=== PATIENT | male | born 1950 | race Caucasian/White ===

== ENCOUNTER 2018-03-27 12:06 | Inpatient (IN) | payer OTHER ==
--- NOTE | 2018-03-27 12:33 | PDOC ---
Attending Attestation - ED Attending Attestation I have performed the following: I have examined & evaluated the patient, The case was reviewed & discussed with the resident, I agree w/resident's findings & plan, Exceptions are as noted - HPI HPI: 03/27/18 14:20 The patient is a 68 year old male, with a significant past medical history of Afib (s/p defibrillator), HTN, and HLD, who presents to the emergency department with, acute onset shortness of breath and left anterior norton wound. Patient endorses worsening orthopnea, dyspnea upon exertion and subsequently has had to use 3-4 pillows. The patient also endorses a left anterior norton wound with purulent discharge with associated bilateral lower extremity swelling (took HCTZ today). He denies any recent fevers, chills, headache or dizziness. He denies any recent nausea, vomit, diarrhea or constipation. He denies any recent chest pain. He denies any recent dysuria, frequency, urgency or hematuria. Allergies: NKA Past surgical history: Cholecystectomy and defibrillator implantation. Social History: Smoker (4 per day for 20 years). Denies EtOH use and recreational drug use. 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 Pt is alert and oriented in no acute distress. Lungs have scattered wheezes at bases. Heart has regular rate and rhythm. + 2 pitting edema to knee bilaterally. + shallow ulceration to L norton without drainage or surrounding erythema. - Medical Decision Making 03/27/18 14:24 Pt presents to the ED complaining of two days of worsening SOB, RILEY and orthopnea. + signs of pulmonary edema on CXR. Differential includes CHF exacerbation, less likely ACS, PNA, unlikely PE. will check labs, EKG And CXR, consider admitting to medicine for CHF exacerbation. 03/27/18 14:25 <Laury Barahona - Last Filed: 03/27/18 14:27> Attestations - Attestations 03/27/18 14:20 Documentation prepared by Tabitha Sánchez, acting as medical assistant cardiology for Laury Barahona MD. <Tabitha Sánchez - Last Filed: 03/27/18 14:20>
--- NOTE | 2018-03-27 13:04 | PDOC ---
History of Present Illness - General Chief Complaint: Weakness Stated Complaint: INJURY, SOB Time Seen by Provider: 03/27/18 12:29 - History of Present Illness Initial Comments: 03/27/18 13:03 The patient is a 68 year old male presents with shortness of breath. Patient states he has been short of breath when laying down for the last 2-3 days, however today he felt short of breath upon exertion prompting his visit to the ED. No h/o RILEY, however patient does have a h/o orthopnea. Denies any chest pain, lightheadedness, palpitations. Patient states he follows with a plaster model and mold maker but does not have a PMD because he does not like going to see doctors. Is unable to state why he sees a plaster model and mold maker -- unsure if he has heart failure. Patient notes he took he daily HCTZ and Lasix today. Patient also c/o two anterior norton wounds which showed some purulent discharge. Patient has been treating them with an OTC antibacterial cream. Patient denies fevers/chills, nausea/vomiting, diarrhea/constipation, numbness/ tingling. 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 Cardiac scoring CT showed a mildly calcified coronary artery in 2014. Past History - Past Medical History Allergies/Adverse Reactions: Allergies Allergy/AdvReac Type Severity Reaction Status Date / Time No Known Allergies Allergy Verified 03/27/18 12:08 Home Medications: Ambulatory Orders Furosemide [Lasix -] 40 mg PO DAILY #0 tablet 02/25/12 Apixaban [Eliquis -] 5 mg PO BID 03/27/18 Diltiazem [Cardizem -] 360 mg PO DAILY 03/27/18 Lisinopril [Prinivil -] 20 mg PO DAILY 03/27/18 Metoprolol Succinate [Toprol XL -] 100 mg PO BID 03/27/18 Anemia: No Asthma: No Cancer: No Cardiac Disorders: Yes (A-fib) CVA: No COPD: No CHF: No Dementia: No Diabetes: No GI Disorders: No Disorders: No HTN: Yes Hypercholesterolemia: Yes Liver Disease: No Seizures: No Thyroid Disease: No - Surgical History Abdominal Surgery: No Appendectomy: No Cardiac Surgery: Yes (defib) Cholecystectomy: Yes Lung Surgery: No Neurologic Surgery: No Orthopedic Surgery: No - Immunization History Td Vaccination: (unknown) Immunization Up to Date: (unknown) - Suicide/Smoking/Psychosocial Hx Smoking Status: Yes Smoking History: Current every day smoker Years of Tobacco Use: 15 Number of Cigarettes Smoked Daily: 0 Cigars Per Day: 4 Information on smoking cessation initiated: Yes 'Breaking Loose' booklet given: 03/27/18 Hx Alcohol Use: No Drug/Substance Use Hx: No Substance Use Type: None Review of Systems - Review of Systems Constitutional: No: Chills, Fever HEENTM: No: Blurred Vision, Double Vision Respiratory: Yes: Shortness of Breath. No: Wheezing Cardiac (ROS): No: Chest Pain, Lightheadedness, Palpitations, Syncope ABD/GI: No: Constipated, Diarrhea, Nausea, Rectal Bleeding *Physical Exam - Vital Signs Last Vital Signs Temp Pulse Resp BP Pulse Ox 98.4 F 72 18 157/71 95 03/27/18 12:09 03/27/18 12:09 03/27/18 12:09 03/27/18 12:09 03/27/18 12:09 - Physical Exam General Appearance: Yes: Nourished, Appropriately Dressed HEENT: positive: Normal Voice, Hearing Grossly Normal Neck: positive: Trachea midline, Supple Respiratory/Chest: positive: Lungs Clear, Normal Breath Sounds Cardiovascular: positive: S1, S2, Edema (3+ B/L pitting edema) Vascular Pulses: Dorsalis-Pedis (R): 2+, Doralis-Pedis (L): 2+ Gastrointestinal/Abdominal: positive: Normal Bowel Sounds, Soft Musculoskeletal: negative: CVA Tenderness (R), CVA Tenderness (L) Extremity: positive: Normal Capillary Refill, Other (L anterior norton Stage I ulcers x2 - no erythema/purulent discharge appreciated) Integumentary: positive: Normal Color, Dry, Warm Neurologic: positive: Fully Oriented, Alert Heart Score/ECG Review - ECG Impressions Comment:: 03/27/18 20:35 Afib w/ventricular pacing; previous ECG (2011) shows AFib w/RVR ED Treatment Course - LABORATORY CBC & Chemistry Diagram: 03/27/18 14:15 03/27/18 14:15 - RADIOLOGY Radiology Studies Ordered: Category Date Time Status CXRPORT [CHEST X-RAY PORTABLE*] [RAD] Stat Radiology 03/27/18 12:56 Ordered Medical Decision Making - Medical Decision Making 03/27/18 13:04 68 year old male with shortness of breath. DDx: R/o ACS, new onset CHF, obstructive CAD, PNA, less likely PE given VS, lack of hypercoaguable meds, no recent immobilization. Will obtain CBC, CMP, ECG, CXR, Troponin. Likely admission. Reassess. ECG documented in ECG section of EMR - AFib, paced w/o RVR. 03/27/18 15:34 Troponin 0.21 (previous Troponin 0.19) BNP 11,120.8 (previous BNP 1999) Suspect elevated Troponin 2/2 to ischemic demand 2/2 to CHF exacerbation vs. obstructive CAD VS stable Will page for admission 03/27/18 15:37 Case d/w Dr. Cardona - accepts for inpatient telemetry 03/27/18 15:42 Repeat Trop @ 6 hour Patient resting comfortably VS stable *DC/Admit/Observation/Transfer Diagnosis at time of Disposition: Elevated brain natriuretic peptide (BNP) level - Discharge Dispostion Condition at time of disposition: Fair Decision to Admit order: Yes - Referrals - Patient Instructions - Post Discharge Activity
[2018-03-27 14:32] LABS: BASO % 1.5 % (0-2.0); HEMATOCRIT 47.1 % (35.4-49); HEMOGLOBIN 15.5 GM/dL (11.7-16.9); LYMPH % 19.8 % (8-40); MCH 30.6 pg (25.7-33.7); MEAN CELL VOLUME 92.9 fl (80-96); MEAN PLT VOLUME 8.6 fl (7.5-11.1); MONO % 15.6 % (3.8-10.2); NEUT % 62.1 % (42.8-82.8); PLATELET COUNT 196 K/MM3 (134-434); RBC 5.07 M/mm3 (4.00-5.60); RDW 15.2 % (11.9-15.9); WHITE BLOOD COUNT 8.7 K/mm3 (4.0-10.0)
[2018-03-27 15:09] LABS: ANISOCYTOSIS 0; MACROCYTOSIS 0; SMUDGE CELLS 3
[2018-03-27 15:10] LABS: ACANTHOCYTES 0; HELMET CELLS 0; HOWELL-JOLLY BODIES 0; OVALOCYTE 0; PLATELET ESTIMATE ADEQUATE; ROULEAU 0; SICKELED CELLS 0; TARGET CELLS 0; TEAR DROP CELLS 0; TOXIC GRANULATION 0
[2018-03-27 15:27] LABS: ALBUMIN 3.5 g/dl (3.4-5.0); ALK PHOS 103 U/L (45-117); ANION GAP 7 MMOL/L (8-16); BILIRUBIN,TOTAL 1.3 mg/dL (0.2-1); BLOOD UREA NITROGEN 21 mg/dL (7-18); CALCIUM 9.7 mg/dL (8.5-10.1); CHLORIDE 104 mmol/L (98-107); CO2 29 mmol/L (21-32); CREATININE 1.4 mg/dL (0.55-1.3); GLUCOSE,RANDOM 108 mg/dL (74-106); N-TERMINAL BNP 11120.8 pg/ml (5-125); POTASSIUM 4.6 mmol/L (3.5-5.1); SGOT/AST 19 U/L (15-37); SGPT/ALT 26 U/L (13-61); SODIUM 139 mmol/L (136-145); TOT PROT 7.8 g/dl (6.4-8.2)
[2018-03-27] MEDS ORDERED: FUROSEMIDE 40 MG/4 ML INJECTABLE VIAL IVPUSH ONE (15:33)
[2018-03-27] MEDS ORDERED: ASPIRIN 325 MG TABLET PO ONE (15:33)
[2018-03-27] MEDS ORDERED: ASPIRIN 325 MG TABLET ONE (15:37)
[2018-03-27] MEDS ORDERED: FUROSEMIDE 40 MG/4 ML INJECTABLE VIAL ONE (15:37)
--- NOTE | 2018-03-27 17:49 | HP ---
Admitting History and Physical - Primary Care Physician PCP: Alejandro Cardona - Admission History of Present Illness: 68 year old male, with a significant past medical history of Afib (s/p defibrillator), HTN, and HLD, who presents to the emergency department with, acute onset shortness of breath and left anterior norton wound. Patient endorses worsening orthopnea, dyspnea upon exertion and subsequently has had to use 3-4 pillows. The patient also endorses a left anterior norton wound with purulent discharge with associated bilateral lower extremity swelling (took HCTZ today). pt does not believe he hit his head as he fell on his legs - Past Medical History Cardiovascular: Yes: AFIB, HTN, Hyperlipdemia - Smoking History Smoking history: Current every day smoker Aproximately how many cigarettes per day: 0 - Alcohol/Substance Use Hx Alcohol Use: No Home Medications - Allergies Allergies/Adverse Reactions: Allergies Allergy/AdvReac Type Severity Reaction Status Date / Time No Known Allergies Allergy Verified 03/27/18 12:08 - Home Medications Home Medications: Ambulatory Orders Furosemide [Lasix -] 40 mg PO DAILY #0 tablet 02/25/12 Apixaban [Eliquis -] 5 mg PO BID 03/27/18 Diltiazem [Cardizem -] 360 mg PO DAILY 03/27/18 Lisinopril [Prinivil -] 20 mg PO DAILY 03/27/18 Metoprolol Succinate [Toprol XL -] 100 mg PO BID 03/27/18 Physical Examination Vital Signs: Vital Signs Temperature 98.4 F 03/27/18 12:09 Pulse Rate 67 03/27/18 16:06 Respiratory Rate 17 03/27/18 16:06 Blood Pressure 136/77 03/27/18 16:06 O2 Sat by Pulse Oximetry (%) 96 03/27/18 16:06 Constitutional: Yes: No Distress HENT: Yes: Atraumatic Neck: Yes: Supple Cardiovascular: Yes: Regular Rate and Rhythm Respiratory: Yes: CTA Bilaterally Gastrointestinal: Yes: Normal Bowel Sounds Extremities: Yes: Other (L anterior norton wound R arm wound/abrasion) Edema: Yes Edema: LLE: Trace, RLE: Trace Peripheral Pulses WNL: Yes Neurological: Yes: Alert, Oriented Labs: CBC, BMP 03/27/18 14:15 03/27/18 14:15 Imaging - Results Chest X-ray: Report Reviewed Problem List - Problems (1) Afib Assessment/Plan: on eliquis continue other meds Code(s): I48.91 - UNSPECIFIED ATRIAL FIBRILLATION (2) Fall Assessment/Plan: will do head ct , pt is on blood thinner wound on R arm and L leg noted on abx Code(s): W19.XXXA - UNSPECIFIED FALL, INITIAL ENCOUNTER (3) Elevated brain natriuretic peptide (BNP) level Code(s): R79.89 - OTHER SPECIFIED ABNORMAL FINDINGS OF BLOOD CHEMISTRY Assessment/Plan Laboratory Tests 03/27/18 03/27/18 14:15 14:15 WBC 8.7 RBC 5.07 Hgb 15.5 Hct 47.1 MCV 92.9 MCH 30.6 MCHC 33.0 RDW 15.2 D Plt Count 196 MPV 8.6 D Absolute Neuts (auto) 5.4 Total Counted 100 Neutrophils % 62.1 Neutrophils % (Manual) 62.0 Lymphocytes % 19.8 D Lymphocytes % (Manual) 22.0 Monocytes % 15.6 H Monocytes % (Manual) 13 H Eosinophils % 1.0 Eosinophils % (Manual) 2.0 Basophils % 1.5 D Nucleated RBC % 0 Hypersegmented Neuts 0 Smudge Cells 3 Hypochromia 0 Toxic Granulation 0 Dohle Bodies 0 Nallely Rods 0 Platelet Estimate Adequate Platelet Comment Large platelets Polychromasia 0 Poikilocytosis 0 Basophilic Stippling 0 Anisocytosis 0 Microcytosis 0 Macrocytosis 0 Spherocytes 0 Siderocytes 0 Sickle Cells 0 Target Cells 0 Tear Drop Cells 0 Ovalocytes 0 Stomatocytes 0 Helmet Cells 0 [place] Bodies 0 [place] Rings 0 Patrick Cells 0 Acanthocytes (Spur) 0 Rouleaux 0 Fragmented RBCs 0 Schistocytes 0 Sodium 139 Potassium 4.6 Chloride 104 Carbon Dioxide 29 Anion Gap 7 L BUN 21 H Creatinine 1.4 H Creat Clearance w eGFR 50.25 Random Glucose 108 H Calcium 9.7 Total Bilirubin 1.3 H AST 19 ALT 26 Alkaline Phosphatase 103 Creatine Kinase 202 Creatine Kinase Index 1.2 CK-MB (CK-2) 2.6 Troponin I 0.21 H B-Natriuretic Peptide 48902.8 H Total Protein 7.8 Albumin 3.5 Active Medications Generic Name Dose Route Start Last Admin Trade Name Freq PRN Reason Stop Dose Admin Acetaminophen 650 mg 03/28/18 10:48 03/28/18 10:57 Tylenol - PO 650 mg Q6H PRN Administration FEVER Apixaban 5 mg 03/27/18 22:00 03/28/18 09:34 Eliquis - PO 5 mg BID JESES Administration Diltiazem HCl 360 mg 03/27/18 22:00 03/28/18 09:34 Cardizem Cd - PO 360 mg DAILY JESSE Administration Furosemide 40 mg 03/28/18 10:00 03/28/18 09:34 Lasix - PO 40 mg DAILY JESSE Administration Clindamycin Phosphate 300 mg in 50 mls @ 100 mls/hr 03/28/18 18:00 03/28/18 18:11 Cleocin 300 Mg Premix Ivpb IVPB 100 mls/hr Q8H-IV JESSE Administration Ibuprofen 600 mg 03/28/18 19:18 Motrin - PO Q6H PRN FEVER Lisinopril 20 mg 03/28/18 10:00 03/28/18 09:34 Prinivil PO 20 mg DAILY JESSE Administration Metoprolol Succinate 100 mg 03/27/18 22:00 03/28/18 09:34 Toprol Xl - PO 100 mg BID JESSE Administration Zolpidem Tartrate 5 mg 03/27/18 23:28 Ambien - PO HS PRN INSOMNIA
[2018-03-27] MEDS: APIXABAN 5 MG TABLET PO SCH (21:53)
[2018-03-27] MEDS ORDERED: ZOLPIDEM TARTRATE 5 MG TABLET PO PRN (23:28)
[2018-03-28 00:56] VITALS: BMI 51.7
[2018-03-28] MEDS ORDERED: PT OWN MED DRAWER 7, Y5N ONE ×2 (06:43→18:22)
[2018-03-28 06:51] LABS: BASO % 1.2 % (0-2.0); EOS % 1.8 % (0-4.5); HEMATOCRIT 44.5 % (35.4-49); HEMOGLOBIN 14.6 GM/dL (11.7-16.9); LYMPH % 20.8 % (8-40); MCH 30.6 pg (25.7-33.7); MCHC 32.9 g/dl (32.0-35.9); MEAN PLT VOLUME 8.5 fl (7.5-11.1); MONO % 15.6 % (3.8-10.2); NEUT % 60.6 % (42.8-82.8); PLATELET COUNT 167 K/MM3 (134-434); RBC 4.79 M/mm3 (4.00-5.60); RDW 15.3 % (11.9-15.9); WHITE BLOOD COUNT 7.8 K/mm3 (4.0-10.0)
[2018-03-28 07:15] LABS: ALBUMIN 3.3 g/dl (3.4-5.0); ALK PHOS 95 U/L (45-117); ANION GAP 6 MMOL/L (8-16); BILIRUBIN,TOTAL 1.4 mg/dL (0.2-1); BLOOD UREA NITROGEN 24 mg/dL (7-18); CALCIUM 8.7 mg/dL (8.5-10.1); CHLORIDE 102 mmol/L (98-107); CO2 31 mmol/L (21-32); CREATININE 1.5 mg/dL (0.55-1.3); GLUCOSE,RANDOM 118 mg/dL (74-106); SGOT/AST 23 U/L (15-37); SGPT/ALT 22 U/L (13-61); SODIUM 139 mmol/L (136-145); TOT PROT 7.2 g/dl (6.4-8.2)
[2018-03-28] MEDS: APIXABAN 5 MG TABLET PO SCH ×2 (09:34→21:08)
[2018-03-28] MEDS: LISINOPRIL 20 MG TABLET (FP) PO SCH (09:34)
[2018-03-28] MEDS ORDERED: PATIENT'S OWN MEDICATION (NON-FORMULARY) (Rivaroxaban [Xarelto] 1 EACH) PO SCH (10:00)
[2018-03-28] MEDS ORDERED: FUROSEMIDE 40 MG TABLET (FP) PO SCH (10:00)
[2018-03-28] MEDS ORDERED: FLU VACCINE QUAD 60 MCG/0.5 ML (MDV 18-19) IM ONE (10:00)
[2018-03-28] MEDS ORDERED: ACETAMINOPHEN 325 MG TABLET (FP) ONE (10:20)
[2018-03-28] MEDS ORDERED: ACETAMINOPHEN 325 MG TABLET (FP) PO PRN (10:48)
--- NOTE | 2018-03-28 11:09 | CON.CARD ---
Cardiology Consult (text) - Consultation Consultation Note: cc: leg weakness hpi: 68 m hx afib, htn, syst chf, icd, ckd here with leg weakness. Few days ago bumped left norton on corner of table and had open wound. Wound started to get infected with pus and then felt weakness in legs so came to ER. No cp, sob palps dizzy loc pnd. Noticed mild le edema in left leg after wound. Sees dr cuellar for cardio. pmh: per hpi psh: cholecystectomy social: occasional tob fam: no premature cad, scd ros: per hpi; no nvd fever cough roth vision changes, gib hematuria dysuria wt loss meds: Home Medications Medication Instructions Recorded Furosemide [Lasix -] 40 mg PO DAILY #0 tablet 02/25/12 Apixaban [Eliquis -] 5 mg PO BID 03/27/18 Diltiazem [Cardizem -] 360 mg PO DAILY 03/27/18 Lisinopril [Prinivil -] 20 mg PO DAILY 03/27/18 Metoprolol Succinate [Toprol XL -] 100 mg PO BID 03/27/18 pe: Vital Signs Period Temp Pulse Resp BP Sys/[place] Pulse Ox Last 24 Hr 98 F-99 F 67-80 16-18 115-157/60-77 95-97 nad no jvd irreg s1s2 no mrg cta bl nl eff aaox3 trace le edema left leg with open wound and purulent discharge, no sig edema on right leg abd nt nd pos bs no jaundice diaphoresis pos dp pt no carotid bruits Laboratory Last Values WBC 7.8 K/mm3 (4.0-10.0) 03/28/18 05:30 RBC 4.79 M/mm3 (4.00-5.60) 03/28/18 05:30 Hgb 14.6 GM/dL (11.7-16.9) 03/28/18 05:30 Hct 44.5 % (35.4-49) 03/28/18 05:30 MCV 93.0 fl (80-96) 03/28/18 05:30 MCH 30.6 pg (25.7-33.7) 03/28/18 05:30 MCHC 32.9 g/dl (32.0-35.9) 03/28/18 05:30 RDW 15.3 % (11.9-15.9) 03/28/18 05:30 Plt Count 167 K/MM3 (134-434) 03/28/18 05:30 MPV 8.5 fl (7.5-11.1) 03/28/18 05:30 Absolute Neuts (auto) 4.7 K/mm3 (1.5-8.0) 03/28/18 05:30 Total Counted 100 03/27/18 14:15 Neutrophils % 60.6 % (42.8-82.8) 03/28/18 05:30 Neutrophils % (Manual) 62.0 % (42.8-82.8) 03/27/18 14:15 Lymphocytes % 20.8 % (8-40) 03/28/18 05:30 Lymphocytes % (Manual) 22.0 % (8-40) 03/27/18 14:15 Monocytes % 15.6 % (3.8-10.2) H 03/28/18 05:30 Monocytes % (Manual) 13 % (3.8-10.2) H 03/27/18 14:15 Eosinophils % 1.8 % (0-4.5) 03/28/18 05:30 Eosinophils % (Manual) 2.0 % (0-4.5) 03/27/18 14:15 Basophils % 1.2 % (0-2.0) 03/28/18 05:30 Nucleated RBC % 0 % (0-0) 03/28/18 05:30 Hypersegmented Neuts 0 03/27/18 14:15 Smudge Cells 3 03/27/18 14:15 Hypochromia 0 03/27/18 14:15 Toxic Granulation 0 03/27/18 14:15 Dohle Bodies 0 03/27/18 14:15 Nallely Rods 0 03/27/18 14:15 Platelet Estimate Adequate 03/27/18 14:15 Platelet Comment Large platelets 03/27/18 14:15 Polychromasia 0 03/27/18 14:15 Poikilocytosis 0 03/27/18 14:15 Basophilic Stippling 0 03/27/18 14:15 Anisocytosis 0 03/27/18 14:15 Microcytosis 0 03/27/18 14:15 Macrocytosis 0 03/27/18 14:15 Spherocytes 0 03/27/18 14:15 Siderocytes 0 03/27/18 14:15 Sickle Cells 0 03/27/18 14:15 Target Cells 0 03/27/18 14:15 Tear Drop Cells 0 03/27/18 14:15 Ovalocytes 0 03/27/18 14:15 Stomatocytes 0 03/27/18 14:15 Helmet Cells 0 03/27/18 14:15 [place] Bodies 0 03/27/18 14:15 [place] Rings 0 03/27/18 14:15 Patrick Cells 0 03/27/18 14:15 Acanthocytes (Spur) 0 03/27/18 14:15 Rouleaux 0 03/27/18 14:15 Fragmented RBCs 0 03/27/18 14:15 Schistocytes 0 03/27/18 14:15 Sodium 139 mmol/L (136-145) 03/28/18 05:30 Potassium 4.0 mmol/L (3.5-5.1) 03/28/18 05:30 Chloride 102 mmol/L (98-107) 03/28/18 05:30 Carbon Dioxide 31 mmol/L (21-32) 03/28/18 05:30 Anion Gap 6 MMOL/L (8-16) L 03/28/18 05:30 BUN 24 mg/dL (7-18) H 03/28/18 05:30 Creatinine 1.5 mg/dL (0.55-1.3) H 03/28/18 05:30 Creat Clearance w eGFR 46.40 (>60) 03/28/18 05:30 Random Glucose 118 mg/dL (74-106) H 03/28/18 05:30 Calcium 8.7 mg/dL (8.5-10.1) 03/28/18 05:30 Total Bilirubin 1.4 mg/dL (0.2-1) H 03/28/18 05:30 AST 23 U/L (15-37) 03/28/18 05:30 ALT 22 U/L (13-61) 03/28/18 05:30 Alkaline Phosphatase 95 U/L (45-117) 03/28/18 05:30 Creatine Kinase 247 IU/L (26-308) 03/28/18 00:05 Creatine Kinase Index 1.0 % (0.0-5.0) 10/16/18 00:05 CK-MB (CK-2) 2.5 ng/mL (0.5-3.6) 03/28/18 00:05 Troponin I 0.22 ng/ml (0.00-0.05) H 03/28/18 00:05 B-Natriuretic Peptide 64481.8 pg/ml (5-125) H 03/27/18 14:15 Total Protein 7.2 g/dl (6.4-8.2) 03/28/18 05:30 Albumin 3.3 g/dl (3.4-5.0) L 03/28/18 05:30 cxr: ?mild chf ecg: afib, vpaced tele: afiv, vpaced, rate ok echo 04/2017: mild lve, lvh, lvef 40-45%, rv mild enlarged and mild dec rv fcn , sev adrianna, mod ar, mod mr, mod-sev tr, nl rvsp a/p: 68 m hx afib, htn, syst chf, icd, ckd here with leg weakness. leg weakness: -possibly from leg wound/infection, vs morbid obesity with recent wt gain of 30 pounds afib: -rate controlled on dilt/toprol -cont eliquis htn: -cont home meds, controlled chronic syst chf: -seems at baseline, no sig volume overload -cont lasix 40 po qd -cont bb, gloria -routine outpt icd checks, no recent shocks ckd: -cr at baseline elevated trops: -borderline trop elevation with flat trend and nl ck. similar to prior baseline trop values, not consistent with acs cardiac singh stable for dc
--- NOTE | 2018-03-28 13:12 | EKG ---
Test Reason : Blood Pressure : / mmHG Vent. Rate : 068 BPM Atrial Rate : 340 BPM P-R Int : 000 ms QRS Dur : 178 ms QT Int : 502 ms P-R-T Axes : 000 -60 077 degrees QTc Int : 533 ms ATRIAL FIBRILLATION WITH OCCASIONAL ventricular-paced complexes RIGHT BUNDLE BRANCH BLOCK LEFT ANTERIOR FASCICULAR BLOCK BIFASCICULAR BLOCK ABNORMAL ECG WHEN COMPARED WITH ECG OF 23-FEB-2012 11:55, ELECTRONIC VENTRICULAR PACEMAKER HAS REPLACED ATRIAL FIBRILLATION VENT. RATE HAS DECREASED BY 42 BPM Confirmed by MD ADY, LAISHA ([id number]) on 03/28/2018 1:11:51 PM Referred By: Confirmed By:LAISHA GARSIA MD
--- NOTE | 2018-03-28 14:59 | CON.ID ---
Consult Consult Specialty:: infectious diseases Referred by:: Reason for Consultation:: wound infection - History of Present Illness Chief Complaint: hypoxia.norton wound History of Present Illness: 68 year old male, with a significant past medical history of Afib (s/p defibrillator), HTN, and HLD, who is admitted with, acute onset shortness of breath and left anterior norton wound. Patient endorses worsening orthopnea, dyspnea upon exertion and subsequently has had to use 3-4 pillows. The patient also endorses a left anterior norton wound with purulent discharge with associated bilateral lower extremity swelling (took HCTZ today). - History Source History Provided By: Patient Limitations to Obtaining History: No Limitations - Alcohol/Substance Use Hx Alcohol Use: No - Smoking History Smoking history: Current every day smoker Have you smoked in the past 12 months: Yes Aproximately how many cigarettes per day: 0 Home Medications - Allergies Allergies/Adverse Reactions: Allergies Allergy/AdvReac Type Severity Reaction Status Date / Time No Known Allergies Allergy Verified 03/27/18 12:08 - Home Medications Home Medications: Ambulatory Orders RX: Furosemide [Lasix -] 40 mg PO DAILY #0 tablet 02/25/12 RX: Apixaban [Eliquis -] 5 mg PO BID 03/27/18 RX: Diltiazem [Cardizem -] 360 mg PO DAILY 03/27/18 RX: Lisinopril [Prinivil -] 20 mg PO DAILY 03/27/18 RX: Metoprolol Succinate [Toprol XL -] 100 mg PO BID 03/27/18 RX: Clindamycin [Cleocin -] 300 mg PO Q6HPO #20 capsule 03/29/18 Review of Systems - Review of Systems Constitutional: reports: No Symptoms Eyes: reports: No Symptoms HENT: reports: No Symptoms Neck: reports: No Symptoms Cardiovascular: reports: No Symptoms Respiratory: reports: Cough, SOB Gastrointestinal: reports: No Symptoms Genitourinary: reports: No Symptoms Integumentary: reports: Wound Neurological: reports: No Symptoms Endocrine: reports: No Symptoms Hematology/Lymphatic: reports: No Symptoms Psychiatric: reports: No Symptoms Physical Exam Vital Signs: Vital Signs Temperature 98.2 F 03/28/18 14:27 Pulse Rate 68 03/28/18 14:27 Respiratory Rate 20 03/28/18 14:27 Blood Pressure 109/53 L 03/28/18 14:27 O2 Sat by Pulse Oximetry (%) 96 03/28/18 09:00 Constitutional: Yes: Well Nourished, Calm, Mild Distress Cardiovascular: Yes: Pulse Irregular, S1, S2 Respiratory: Yes: Poor Air Entry (bases) Gastrointestinal: Yes: Normal Bowel Sounds, Soft Musculoskeletal: Yes: Other Extremities: Yes: Erythema, Other Wound/Incision: Yes: Dressing Dry and Intact, Dressing Removed Neurological: Yes: Alert, Oriented Psychiatric: Yes: Alert, Oriented Labs: CBC, BMP 03/28/18 05:30 03/28/18 05:30 Imaging - Results Chest X-ray: Report Reviewed, Image Reviewed Assessment/Plan Problem List - Problems (1) Afib Code(s): I48.91 - UNSPECIFIED ATRIAL FIBRILLATION (2) Fall Code(s): W19.XXXA - UNSPECIFIED FALL, INITIAL ENCOUNTER obesity wound infection plan will start patient on clinda wound care elevation of leg rest as per the team
--- NOTE | 2018-03-28 16:00 | PN ---
Progress Note, Physician History of Present Illness: was not able to do head ct pt saying that he fell on his legs does not recall hitting his head - Current Medication List Current Medications: Active Medications Acetaminophen (Tylenol -) 650 mg PO Q6H PRN PRN Reason: FEVER Last Admin: 03/28/18 10:57 Dose: 650 mg Apixaban (Eliquis -) 5 mg PO BID ON LICENSE OF [facility] Last Admin: 03/28/18 09:34 Dose: 5 mg Diltiazem HCl (Cardizem Cd -) 360 mg PO DAILY ON LICENSE OF [facility] Last Admin: 03/28/18 09:34 Dose: 360 mg Furosemide (Lasix -) 40 mg PO DAILY ON LICENSE OF [facility] Last Admin: 03/28/18 09:34 Dose: 40 mg Lisinopril (Prinivil) 20 mg PO DAILY ON LICENSE OF [facility] Last Admin: 03/28/18 09:34 Dose: 20 mg Metoprolol Succinate (Toprol Xl -) 100 mg PO BID ON LICENSE OF [facility] Last Admin: 03/28/18 09:34 Dose: 100 mg Zolpidem Tartrate (Ambien -) 5 mg PO HS PRN PRN Reason: INSOMNIA - Objective Vital Signs: Vital Signs Temperature 98.2 F 03/28/18 14:27 Pulse Rate 68 03/28/18 14:27 Respiratory Rate 20 03/28/18 14:27 Blood Pressure 109/53 L 03/28/18 14:27 O2 Sat by Pulse Oximetry (%) 96 03/28/18 09:00 Constitutional: Yes: No Distress HENT: Yes: Atraumatic Neck: Yes: Supple Cardiovascular: Yes: Regular Rate and Rhythm Respiratory: Yes: CTA Bilaterally Gastrointestinal: Yes: Normal Bowel Sounds Extremities: Yes: Other (wound/abrasion R ux...healing left norton ..healing) Edema: Yes Edema: LLE: 1+, RLE: 1+ Peripheral Pulses WNL: Yes Neurological: Yes: Alert, Oriented Labs: CBC, BMP 03/28/18 05:30 03/28/18 05:30 Problem List - Problems (1) Afib Assessment/Plan: on eliquis continue other meds Code(s): I48.91 - UNSPECIFIED ATRIAL FIBRILLATION (2) Fall Assessment/Plan: wound on R arm and L leg healing on abx Code(s): W19.XXXA - UNSPECIFIED FALL, INITIAL ENCOUNTER
[2018-03-28] MEDS: CLINDAMYCIN 300 MG PREMIX IVPB 300 MG/50 ML BAG IVPB SCH (18:11)
[2018-03-28] MEDS ORDERED: IBUPROFEN 600 MG TABLET (FP) PO PRN (19:18)
[2018-03-29] MEDS: CLINDAMYCIN 300 MG PREMIX IVPB 300 MG/50 ML BAG IVPB SCH ×2 (01:30→10:13)
--- NOTE | 2018-03-29 09:11 | PN ---
Progress Note, Physician Chief Complaint: leg weakness, sob History of Present Illness: was sob in bed when lay flat 2 days ago at home--this was part of why he came in. admits he was not taking lasix 40 qd as rx'd. gained 30 lbs in a month, which he attributed to eating spree, but did also notice swollen ankles. leg weakness episode on DOA was more that the leg gave way when stepped on a stair. no paralysis or loss of sensation--now close to his baseline no palpit, cp, icd shocks - Current Medication List Current Medications: Active Medications Acetaminophen (Tylenol -) 650 mg PO Q6H PRN PRN Reason: FEVER Last Admin: 03/28/18 10:57 Dose: 650 mg Apixaban (Eliquis -) 5 mg PO BID [facility] Last Admin: 03/28/18 21:08 Dose: 5 mg Diltiazem HCl (Cardizem Cd -) 360 mg PO DAILY [facility] Last Admin: 03/28/18 09:34 Dose: 360 mg Furosemide (Lasix -) 40 mg PO DAILY [facility] Last Admin: 03/28/18 09:34 Dose: 40 mg Clindamycin Phosphate (Cleocin 300 Mg Premix Ivpb) 300 mg in 50 mls @ 100 mls/ hr IVPB Q8H-IV [facility] Last Admin: 03/29/18 01:30 Dose: 100 mls/hr Ibuprofen (Motrin -) 600 mg PO Q6H PRN PRN Reason: FEVER Last Admin: 03/28/18 21:09 Dose: 600 mg Lisinopril (Prinivil) 20 mg PO DAILY [facility] Last Admin: 03/28/18 09:34 Dose: 20 mg Metoprolol Succinate (Toprol Xl -) 100 mg PO BID [facility] Last Admin: 03/28/18 21:09 Dose: 100 mg Zolpidem Tartrate (Ambien -) 5 mg PO HS PRN PRN Reason: INSOMNIA Last Admin: 03/28/18 23:40 Dose: 5 mg - Objective Vital Signs: Vital Signs Temperature 97.5 F L 03/29/18 08:40 Pulse Rate 66 03/29/18 08:40 Respiratory Rate 18 03/29/18 08:40 Blood Pressure 132/54 L 03/29/18 08:40 O2 Sat by Pulse Oximetry (%) 96 03/28/18 21:00 Constitutional: Yes: No Distress, Calm, Obese Cardiovascular: Yes: Pulse Irregular, S1, S2. No: JVD, Gallop, Murmur Respiratory: Yes: Regular, CTA Bilaterally. No: Accessory Muscle Use, Rales, Wheezes Extremities: No: Cold Edema: Yes (mild nonpitting L > R) Neurological: Yes: Alert, Oriented Psychiatric: No: Agitated Labs: CBC, BMP 03/28/18 05:30 03/28/18 05:30 Assessment/Plan cxr: ?mild chf ecg: afib, vpaced echo 04/2017: mild lve, lvh, lvef 40-45%, rv mild enlarged and mild dec rv fcn , sev adrianna, mod ar, mod mr, mod-sev tr, nl rvsp tele: afib, V-paced a/p: 68 m hx afib, htn, syst chf, icd, ckd here with leg weakness. leg weakness: -likely due to leg wound/infection or morbid obesity with recent severe wt gain/ deconditioning -sx's not suspicious for TIA/CVA afib: -rate controlled on diltiazem/toprol regimen long time. -previously with repeated rapid afib and inappropriate ICD shocks. -continuing diltiazem as long as EF remains >40%, without recurrent decomp CHF. -cont eliquis. repeatedly declines bid dosing despite understanding risks of stroke--fearful will have recurrent hematuria (radiation cystitis) and does not want hyperbaric tx. has been taking bid one week, qd the next since last visit with me and no bleeding thus far. again advised him on importance of bid dosing (declines xarelto or other QD noac b/c afraid of full dose AC) and he will continue bid htn: -cont home meds, controlled acute on chronic syst chf: -very difficult to confidently assess volume status on exam (morbid obesity, mild-mod chronic pretib edema sec to CCB, marked fluctuations in wt due to intense dieting off and on) -acute sob at home (orthopnea). -BNP 11K (2K in 2011). CXR reviewed: probably significant overlying soft tissue markings (similar to priors) though suspect vascular redistribution pattern and possible mild pulm edema. L base obscured vs eff unchanged vs prior. -chf triggered by noncompliance with home lasix (40 qd), ? diet contributing of late as well -orthopnea resolved, edema much improved. received lasix 40 qd here x 1 -will give lasix 40 iv x 1 today, then can go home on 40 qd -cont bb, gloria -routine outpt icd checks, no recent shocks and normal fxn ckd: -cr at baseline (range 1.4-1.6) elevated trops: -intermediate range trop elevation with flat trend (0.2 x3), not c/w ACS. likely due to chronic chf. -no ischemic sx's -no further w/u OK FOR D/C FROM [facility]
[2018-03-29] MEDS ORDERED: FUROSEMIDE 40 MG/4 ML INJECTABLE VIAL IVPUSH ONE (09:25)
[2018-03-29] MEDS: LISINOPRIL 20 MG TABLET (FP) PO SCH (10:11)
[2018-03-29] MEDS: APIXABAN 5 MG TABLET PO SCH (10:12)
[2018-03-29 13:23] VITALS: TEMP 98.3
--- NOTE | 2018-03-29 14:02 | PN ---
Progress Note, Physician History of Present Illness: patient doing well no issues wound stable - Current Medication List Current Medications: Active Medications Acetaminophen (Tylenol -) 650 mg PO Q6H PRN PRN Reason: FEVER Last Admin: 03/28/18 10:57 Dose: 650 mg Apixaban (Eliquis -) 5 mg PO BID [facility] Last Admin: 03/29/18 10:12 Dose: 5 mg Diltiazem HCl (Cardizem Cd -) 360 mg PO DAILY [facility] Last Admin: 03/29/18 10:12 Dose: 360 mg Furosemide (Lasix -) 40 mg PO DAILY [facility] Clindamycin Phosphate (Cleocin 300 Mg Premix Ivpb) 300 mg in 50 mls @ 100 mls/ hr IVPB Q8H-IV [facility] Last Admin: 03/29/18 10:13 Dose: 100 mls/hr Ibuprofen (Motrin -) 600 mg PO Q6H PRN PRN Reason: FEVER Last Admin: 03/28/18 21:09 Dose: 600 mg Lisinopril (Prinivil) 20 mg PO DAILY [facility] Last Admin: 03/29/18 10:11 Dose: 20 mg Metoprolol Succinate (Toprol Xl -) 100 mg PO BID [facility] Last Admin: 03/29/18 10:11 Dose: 100 mg Zolpidem Tartrate (Ambien -) 5 mg PO HS PRN PRN Reason: INSOMNIA Last Admin: 03/28/18 23:40 Dose: 5 mg - Objective Vital Signs: Vital Signs Temperature 98.3 F 03/29/18 13:22 Pulse Rate 79 03/29/18 13:22 Respiratory Rate 20 03/29/18 13:22 Blood Pressure 129/62 03/29/18 13:22 O2 Sat by Pulse Oximetry (%) 98 03/29/18 09:00 Constitutional: Yes: No Distress, Calm, Obese HENT: Yes: Atraumatic Cardiovascular: Yes: Regular Rate and Rhythm Respiratory: Yes: Regular, CTA Bilaterally Gastrointestinal: Yes: Normal Bowel Sounds, Soft Musculoskeletal: Yes: WNL Extremities: Yes: Other Wound/Incision: Yes: Dressing Dry and Intact Neurological: Yes: Alert, Oriented Psychiatric: Yes: Alert, Oriented Labs: CBC, BMP 03/28/18 05:30 03/28/18 05:30 Assessment/Plan Problem List - Problems (1) Afib Code(s): I48.91 - UNSPECIFIED ATRIAL FIBRILLATION (2) Fall Code(s): W19.XXXA - UNSPECIFIED FALL, INITIAL ENCOUNTER obesity wound infection plan clinda 300 mg every 6 hourly for 5 more days rest contnue current mgmt stable wound care
[2018-03-29 14:09] VITALS: BP 122/76; PULSE 76
--- NOTE | 2018-03-29 14:37 | DS ---
Physical Examination Vital Signs: Vital Signs Temperature 98.3 F 03/29/18 14:08 Pulse Rate 76 03/29/18 14:08 Respiratory Rate 20 03/29/18 14:08 Blood Pressure 122/76 03/29/18 14:08 O2 Sat by Pulse Oximetry (%) 98 03/29/18 09:00 Constitutional: Yes: No Distress HENT: Yes: Atraumatic Neck: Yes: Supple Cardiovascular: Yes: Regular Rate and Rhythm Respiratory: Yes: CTA Bilaterally Gastrointestinal: Yes: Normal Bowel Sounds Extremities: Yes: Other (wond on left lwg and right arm healing) Peripheral Pulses WNL: Yes Neurological: Yes: Alert, Oriented Labs: CBC, BMP 03/28/18 05:30 03/28/18 05:30 Discharge Summary Reason For Visit: ELEVATED BNP,ELEVATED TROPONIN LEVEL Current Active Problems Afib (Acute) Elevated brain natriuretic peptide (BNP) level (Acute) Fall (Acute) Condition: Fair - Instructions Disposition: HOME - Home Medications Comprehensive Discharge Medication List: Ambulatory Orders Furosemide [Lasix -] 40 mg PO DAILY #0 tablet 02/25/12 Apixaban [Eliquis -] 5 mg PO BID 03/27/18 Diltiazem [Cardizem -] 360 mg PO DAILY 03/27/18 Lisinopril [Prinivil -] 20 mg PO DAILY 03/27/18 Metoprolol Succinate [Toprol XL -] 100 mg PO BID 03/27/18 Clindamycin [Cleocin -] 300 mg PO Q6HPO #20 capsule 03/29/18 dc
[2018-03-29] MEDS ORDERED: CLINDAMYCIN HCL 150 MG CAPSULE (FP) PO SCH (18:00)
[2018-03-30] MEDS ORDERED: FUROSEMIDE 40 MG TABLET (FP) PO SCH (10:00)
== END 2018-03-29 14:55 | disposition home or self-care (01) | DRG 291 ==
LOC: JER 12:06 → JERBED 15:36 → J4W 21:21
PROVIDERS: ADMIT Internal Medicine; ATTEND Internal Medicine
DX: I13.0 Hypertensive heart and chronic kidney disease with heart failure and stage 1 through stage 4 chronic kidney disease, or unspecified chronic kidney disease (principal); I50.23 Acute on chronic systolic (congestive) heart failure; Z68.43 Body mass index [BMI] 50.0-59.9, adult; E66.01 Morbid (severe) obesity due to excess calories; I48.91 Unspecified atrial fibrillation; I25.5 Ischemic cardiomyopathy; N18.9 Chronic kidney disease, unspecified; E78.00 Pure hypercholesterolemia, unspecified; F17.210 Nicotine dependence, cigarettes, uncomplicated; I25.10 Atherosclerotic heart disease of native coronary artery without angina pectoris; S40.811A Abrasion of right upper arm, initial encounter; S80.812A Abrasion, left lower leg, initial encounter; W18.39XA Other fall on same level, initial encounter; Y93.89 Activity, other specified; Y92.89 Other specified places as the place of occurrence of the external cause; Y99.8 Other external cause status; Z95.0 Presence of cardiac pacemaker
CPT/HCPCS: 36415; 71045-TC-FY; 80053; 82550; 82553; 83880; 84484; 85025; 87070; 87077; 87205; 90688; 93005; 93010; 99285-25; G0008

== ENCOUNTER 2018-11-08 00:30 | Inpatient (IN) | payer OTHER | END 2018-11-10 17:32 | disposition home or self-care (01) | LOC: JERBED 11-09 07:32 → J8W 11-09 14:09 → JER 00:30 ==

== ENCOUNTER 2021-09-27 09:12 | Inpatient (IN) | payer OTHER ==
[2021-09-27 10:08] LABS: BASO % 0.4 % (0-2.0); HEMATOCRIT 47.5 % (35.4-49); HEMOGLOBIN 15.8 GM/dL (11.7-16.9); LYMPH % 7.6 % (8-40); MCH 30.9 pg (25.7-33.7); MCHC 33.3 g/dl (32.0-35.9); MEAN PLT VOLUME 8.9 fl (7.5-11.1); MONO % 9.6 % (3.8-10.2); NEUT % 82.4 % (42.8-82.8); PLATELET COUNT 186 10^3/uL (134-434); RBC 5.11 M/mm3 (4.00-5.60); RDW 13.9 % (11.9-15.9)
[2021-09-27 10:16] LABS: INR 1.84 (0.83-1.09); PROTHROMBIN TIME (PATIENT) 21.3 SEC (9.7-13.0)
[2021-09-27 10:19] LABS: ACTIVATED PTT 37.7 SECONDS (25.2-36.5)
[2021-09-27 10:21] LABS: CHLORIDE 106 mmol/L (98-107); SODIUM 134 mmol/L (136-145)
[2021-09-27 10:24] LABS: ALBUMIN 3.3 g/dl (3.4-5.0); ANION GAP 8 MMOL/L (8-16); BLOOD UREA NITROGEN 61.5 mg/dL (7-18); CO2 20 mmol/L (21-32); MAGNESIUM 2.1 mg/dL (1.8-2.4)
[2021-09-27 10:25] LABS: GLUCOSE,RANDOM 187 mg/dL (74-106)
[2021-09-27 10:27] LABS: CHOLESTEROL 131 mg/dL (50-200); CREATININE 3.3 mg/dL (0.55-1.3); SGOT/AST 70 U/L (15-37); SGPT/ALT 55 U/L (13-61); TRIGLYCERIDES 93 mg/dL (0-150)
[2021-09-27 10:28] LABS: LDL CHOLESTEROL (ONLY SJRH) 69 mg/dL (5-100); TOT PROT 7.8 g/dl (6.4-8.2)
[2021-09-27 10:29] LABS: BILIRUBIN,TOTAL 1.5 mg/dL (0.2-1); HDL CHOLESTEROL 46 mg/dL (40-60); N-TERMINAL BNP 34787.2 pg/ml (5-125)
[2021-09-27 10:30] LABS: ALK PHOS 96 U/L (45-117)
[2021-09-27] MEDS ORDERED: ASPIRIN 81 MG CHEWABLE TABLETS ONE (10:33)
[2021-09-27] MEDS ORDERED: ASPIRIN 81 MG CHEWABLE TABLETS PO ONE (10:33)
[2021-09-27 10:44] LABS: LACTIC ACID 2.3 mmol/L (0.4-2.0)
[2021-09-27 15:37] LABS: EPI CELLS 8 /uL (0-25.1); HYALINE CASTS 2 /uL (0-3.1); URINE APPEARANCE CLEAR; URINE BACTERIA 0 /uL (0-1359); URINE BILIRUBIN NEGATIVE (NEGATIVE); URINE COLOR YELLOW; URINE GLUCOSE (UA) NEGATIVE (NEGATIVE); URINE KETONE NEGATIVE (NEGATIVE); URINE LEUK ESTERASE NEGATIVE (NEGATIVE); URINE NITRITE NEGATIVE (NEGATIVE); URINE PROTEIN 1+ (NEGATIVE); URINE UROBILINOGEN 0.2 mg/dL (0.2-1.0); URINE WBC 11 /uL (0-25.8)
[2021-09-27 17:01] LABS: URINE RBC 55 /uL (0-23.9)
[2021-09-27] MEDS ORDERED: APIXABAN 5 MG TABLET ONE (22:28)
[2021-09-27] MEDS: DEXTROSE 5%-0.45% SALINE 1,000 ML IV SCH (22:55)
[2021-09-27] MEDS: APIXABAN 5 MG TABLET PO SCH (22:55)
[2021-09-28 07:19] LABS: BASO % 0.4 % (0-2.0); EOS % 0.1 % (0-4.5); HEMATOCRIT 42.1 % (35.4-49); HEMOGLOBIN 13.9 GM/dL (11.7-16.9); LYMPH % 11.1 % (8-40); MCH 30.6 pg (25.7-33.7); MCHC 33.1 g/dl (32.0-35.9); MEAN CELL VOLUME 92.4 fl (80-96); MEAN PLT VOLUME 9.2 fl (7.5-11.1); MONO % 13.8 % (3.8-10.2); NEUT % 74.6 % (42.8-82.8); PLATELET COUNT 162 10^3/uL (134-434); RBC 4.55 M/mm3 (4.00-5.60); RDW 14.1 % (11.9-15.9); WHITE BLOOD COUNT 16.1 K/mm3 (4.0-10.0)
[2021-09-28 07:55] LABS: ALBUMIN 2.8 g/dl (3.4-5.0); BLOOD UREA NITROGEN 71.7 mg/dL (7-18); CALCIUM 8.1 mg/dL (8.5-10.1); TOT PROT 6.6 g/dl (6.4-8.2)
[2021-09-28 07:56] LABS: BILIRUBIN,TOTAL 1.2 mg/dL (0.2-1)
[2021-09-28 07:57] LABS: CREATININE 3.4 mg/dL (0.55-1.3)
[2021-09-28] MEDS ORDERED: TAMSULOSIN HCL 0.4 MG CAP PO SCH (08:30)
[2021-09-28] MEDS ORDERED: DIGOXIN 0.125 MG TABLET ONE ×2 (09:28→12:17)
[2021-09-28] MEDS ORDERED: APIXABAN 5 MG TABLET ONE ×3 (09:28→22:02)
[2021-09-28] MEDS ORDERED: TAMSULOSIN HCL 0.4 MG CAP ONE ×2 (09:29→12:17)
[2021-09-28] MEDS: APIXABAN 5 MG TABLET PO SCH ×2 (12:31→22:09)
[2021-09-28] MEDS: DIGOXIN 0.125 MG TABLET PO SCH (12:32)
[2021-09-28] MEDS: DEXTROSE 5%-0.45% SALINE 1,000 ML IV SCH (18:07)
[2021-09-28 23:06] VITALS: BMI 42.2
[2021-09-29 07:47] LABS: EOS % 0.8 % (0-4.5); HEMATOCRIT 39.6 % (35.4-49); LYMPH % 14.8 % (8-40); MCH 30.6 pg (25.7-33.7); MCHC 32.9 g/dl (32.0-35.9); MEAN PLT VOLUME 8.9 fl (7.5-11.1); MONO % 11.7 % (3.8-10.2); NEUT % 71.7 % (42.8-82.8); PLATELET COUNT 158 10^3/uL (134-434); RBC 4.26 M/mm3 (4.00-5.60); WHITE BLOOD COUNT 10.3 K/mm3 (4.0-10.0)
[2021-09-29 07:54] LABS: BLOOD UREA NITROGEN 78.7 mg/dL (7-18)
[2021-09-29 07:57] LABS: CREATININE 3.3 mg/dL (0.55-1.3)
[2021-09-29] MEDS ORDERED: SODIUM CHLORIDE 1,000 ML IV SCH (08:15)
[2021-09-29] MEDS ORDERED: PNEUMOC 13-VAL CONJ-DIP CRM/PF 0.5 ML DISP.SYRIN IM ONE ×2 (10:00→15:30)
[2021-09-29] MEDS ORDERED: FLU VACC QS2021-22(6MOS UP)/PF 60 MCG/0.5 ML SYRINGE IM ONE (10:00)
[2021-09-29] MEDS: APIXABAN 5 MG TABLET PO SCH (10:24)
[2021-09-29] MEDS: DIGOXIN 0.125 MG TABLET PO SCH (10:24)
[2021-09-29 14:12] VITALS: BP 110/62; PULSE 70; TEMP 98.9
== END 2021-09-29 15:55 | disposition home or self-care (01) | DRG 683 ==
LOC: JER 09:12 → JERBED 10:07 → J4S 09-28 22:40
PROVIDERS: ADMIT Internal Medicine; ATTEND Internal Medicine
DX: N17.9 Acute kidney failure, unspecified (principal); Z68.41 Body mass index [BMI] 40.0-44.9, adult; I13.0 Hypertensive heart and chronic kidney disease with heart failure and stage 1 through stage 4 chronic kidney disease, or unspecified chronic kidney disease; I50.22 Chronic systolic (congestive) heart failure; J98.11 Atelectasis; I45.2 Bifascicular block; E87.1 Hypo-osmolality and hyponatremia; I48.91 Unspecified atrial fibrillation; N18.30 Chronic kidney disease, stage 3 unspecified; E86.9 Volume depletion, unspecified; N28.1 Cyst of kidney, acquired; R79.89 Other specified abnormal findings of blood chemistry; I45.10 Unspecified right bundle-branch block; I25.10 Atherosclerotic heart disease of native coronary artery without angina pectoris; E66.01 Morbid (severe) obesity due to excess calories; Z85.46 Personal history of malignant neoplasm of prostate; Z95.810 Presence of automatic (implantable) cardiac defibrillator
CPT/HCPCS: 36415; 71045-TC-FY; 74176-TC; 80048; 80053; 80061; 80162; 81003; 82570; 83605; 83735; 83880; 84156; 84443; 84484; 85025; 85610; 85730; 86850; 86900; 86901; 87804; 90670; 90686; 93005; 93010; 97116-GP; 97161-GP; 99285-25; C9803-CS; G0008; G0009; U0003; U0005

== ENCOUNTER 2021-09-30 16:15 | Emergency (ER) | payer OTHER ==
[2021-09-30 16:24] VITALS: TEMP 97.9; BMI 41.2
[2021-09-30 17:10] VITALS: BP 140/68; PULSE 84
[2021-09-30] MEDS ORDERED: predniSONE 20 MG TABLET (UD) ONE (17:29)
[2021-09-30] MEDS ORDERED: predniSONE 10 MG TABLET (UD) ONE (17:29)
[2021-09-30] MEDS ORDERED: predniSONE 20 MG TABLET (UD) PO ONE (17:33)
[2021-10-01] MEDS ORDERED: predniSONE 20 MG TABLET (UD) PO ONE (17:20)
== END 2021-09-30 18:21 | disposition home or self-care (01) ==
LOC: JER 16:15
DX: M10.071 Idiopathic gout, right ankle and foot (principal); M10.072 Idiopathic gout, left ankle and foot
CPT/HCPCS: 99283-25

== ENCOUNTER 2024-04-06 14:33 | Inpatient (IN) | payer OTHER ==
[2024-04-06 16:25] LABS: BASO % 0.5 % (0-2.0); EOS % 0.2 % (0-4.5); HEMATOCRIT 21.7 % (35.4-49); LYMPH % 12.5 % (8-40); MCH 27.6 pg (25.7-33.7); MCHC 31.1 g/dl (32.0-35.9); MEAN CELL VOLUME 88.8 fl (80-96); MEAN PLT VOLUME 7.3 fl (7.5-11.1); MONO % 8.1 % (3.8-10.2); NEUT % 78.7 % (42.8-82.8); PLATELET COUNT 277 10^3/uL (134-434); RBC 2.44 M/mm3 (4.00-5.60); RDW 17.6 % (11.9-15.9); WHITE BLOOD COUNT 6.4 K/mm3 (4.0-10.0)
[2024-04-06 16:29] LABS: EPI CELLS 4 /uL (0-25.1); HYALINE CASTS 0 /uL (0-3.1); URINE APPEARANCE CLOUDY; URINE BACTERIA 2 /uL (0-1359); URINE BILIRUBIN NEGATIVE (NEGATIVE); URINE COLOR YELLOW; URINE GLUCOSE (UA) NEGATIVE (NEGATIVE); URINE KETONE NEGATIVE (NEGATIVE); URINE LEUK ESTERASE TRACE (NEGATIVE); URINE NITRITE NEGATIVE (NEGATIVE); URINE PROTEIN 1+ (NEGATIVE); URINE RBC 1700 /uL (0-23.9); URINE UROBILINOGEN 0.2 mg/dL (0.2-1.0); URINE WBC 16 /uL (0-25.8)
[2024-04-06 16:39] LABS: CHLORIDE 92 mmol/L (98-107); POTASSIUM 4.5 mmol/L (3.5-5.1); SODIUM 130 mmol/L (136-145)
[2024-04-06 16:41] LABS: CALCIUM 8.5 mg/dL (8.5-10.1)
[2024-04-06 16:42] LABS: ADD RBC MORPHOLOGY YES; ALBUMIN 3.4 g/dl (3.4-5.0); ANION GAP 13 mmol/L (4-13); CO2 25 mmol/L (21-32); GLUCOSE,RANDOM 182 mg/dL (74-106); HEMOGLOBIN 6.7 GM/dL (11.7-16.9)
[2024-04-06 16:45] LABS: CREATININE 3.1 mg/dL (0.55-1.3); SGOT/AST 39 U/L (15-37); SGPT/ALT 26 U/L (13-61)
[2024-04-06 16:46] LABS: BILIRUBIN,TOTAL 0.5 mg/dL (0.2-1); TOT PROT 7.2 g/dl (6.4-8.2)
[2024-04-06 16:47] LABS: ALK PHOS 88 U/L (45-117)
[2024-04-06 16:52] LABS: BLOOD UREA NITROGEN 113.5 mg/dL (7-18)
[2024-04-06 17:23] LABS: ANISOCYTOSIS 2+; MACROCYTOSIS 1+
[2024-04-06 17:28] LABS: INR 2.17 (0.83-1.09); PROTHROMBIN TIME (PATIENT) 24.4 SEC (9.7-13.0)
[2024-04-06 17:31] LABS: ACTIVATED PTT 33.9 SECONDS (25.2-36.5)
[2024-04-06] MEDS ORDERED: FUROSEMIDE 40 MG/4 ML INJECTABLE VIAL ONE (17:34)
[2024-04-06] MEDS: FUROSEMIDE 100 MG/10 ML INJECTABLE VIAL IVPB ONE (18:42)
[2024-04-06] MEDS ORDERED: ASCORBIC ACID 500 MG TABLET (FP) ONE (22:21)
[2024-04-06] MEDS: ASCORBIC ACID 500 MG TABLET (FP) PO SCH (22:29)
[2024-04-06] MEDS: PSYLLIUM 5.85 GM PACKET PO SCH (23:47)
[2024-04-06] MEDS: BISACODYL 5 MG TABLET.DR (FP) PO SCH (23:47)
[2024-04-07 04:25] VITALS: TEMP 98.4
[2024-04-07] MEDS ORDERED: TAMSULOSIN HCL 0.4 MG CAP PO SCH (08:30)
[2024-04-07] MEDS: ALLOPURINOL 100 MG TABLET (FP) PO SCH (08:41)
[2024-04-07] MEDS: TAMSULOSIN HCL 0.4 MG CAP PO SCH (08:41)
[2024-04-07 08:59] LABS: CHLORIDE 98 mmol/L (98-107); POTASSIUM 3.7 mmol/L (3.5-5.1); SODIUM 136 mmol/L (136-145)
[2024-04-07 09:03] LABS: ALBUMIN 3.2 g/dl (3.4-5.0); CALCIUM 8.9 mg/dL (8.5-10.1)
[2024-04-07 09:04] LABS: ANION GAP 11 mmol/L (4-13); CO2 28 mmol/L (21-32); GLUCOSE,RANDOM 104 mg/dL (74-106); MAGNESIUM 2.8 mg/dL (1.8-2.4)
[2024-04-07 09:05] LABS: HEMATOCRIT 22.6 % (35.4-49); HEMOGLOBIN 7.3 GM/dL (11.7-16.9); MCH 28.1 pg (25.7-33.7); MEAN CELL VOLUME 87.8 fl (80-96); MEAN PLT VOLUME 7.4 fl (7.5-11.1); PLATELET COUNT 237 10^3/uL (134-434); RBC 2.58 M/mm3 (4.00-5.60); WHITE BLOOD COUNT 5.8 K/mm3 (4.0-10.0)
[2024-04-07 09:06] LABS: SGPT/ALT 20 U/L (13-61)
[2024-04-07 09:07] LABS: PHOSPHOROUS 5.5 mg/dL (2.5-4.9); SGOT/AST 13 U/L (15-37)
[2024-04-07 09:08] LABS: BILIRUBIN,TOTAL 0.8 mg/dL (0.2-1); TOT PROT 6.6 g/dl (6.4-8.2)
[2024-04-07 09:09] LABS: ALK PHOS 77 U/L (45-117)
[2024-04-07 09:13] LABS: BLOOD UREA NITROGEN 112.3 mg/dL (7-18)
[2024-04-07] MEDS: metoPROLOL SUCCINATE 25 MG TAB.SR.24H (FP) PO SCH (10:16)
[2024-04-07] MEDS: PANTOPRAZOLE 40 MG TABLET PO SCH (10:17)
[2024-04-07 10:40] VITALS: BP 91/57; PULSE 92; RESP 18
[2024-04-07] MEDS: FERROUS GLUCONATE 324 MG TAB (FP) PO SCH (11:37)
[2024-04-07] MEDS ORDERED: ISOSORBIDE DINITRATE 10 MG TABLET PO SCH ×2 (13:00→22:00)
[2024-04-07 13:21] VITALS: BMI 26.4
[2024-04-07] MEDS: hydrALAZINE HCL 10 MG TABLET PO SCH (14:13)
[2024-04-07] MEDS ORDERED: SENNOSIDES 8.6MG TABLET (FP) PO SCH (22:00)
[2024-04-07] MEDS ORDERED: TORSEMIDE 100 MG TABLET PO SCH (22:00)
[2024-04-08] MEDS ORDERED: TORSEMIDE 100 MG TABLET PO SCH (06:00)
== END 2024-04-07 16:00 | disposition home or self-care (01) | DRG 291 ==
LOC: JER 14:33 → JERBED 20:53 → J6S 04-07 00:30
PROVIDERS: ADMIT Internal Medicine; ATTEND Internal Medicine
PROC: 30233N1 Transfusion of Nonautologous Red Blood Cells into Peripheral Vein, Percutaneous Approach (ICD-10-PCS; principal; 2024-04-06)
DX: I13.0 Hypertensive heart and chronic kidney disease with heart failure and stage 1 through stage 4 chronic kidney disease, or unspecified chronic kidney disease (principal); I50.23 Acute on chronic systolic (congestive) heart failure; R18.8 Other ascites; I25.10 Atherosclerotic heart disease of native coronary artery without angina pectoris; I48.91 Unspecified atrial fibrillation; N18.30 Chronic kidney disease, stage 3 unspecified; Z79.01 Long term (current) use of anticoagulants; D64.9 Anemia, unspecified; M10.9 Gout, unspecified; R31.0 Gross hematuria; N28.1 Cyst of kidney, acquired; F17.210 Nicotine dependence, cigarettes, uncomplicated
CPT/HCPCS: 36415; 36430; 74176-TC; 80053; 81003; 83540; 83735; 84100; 85025; 85027; 85610; 85730; 86850; 86900; 86901; 86922; 87086; 93005; 93010; 99285-25; P9058

== ENCOUNTER 2024-06-12 11:16 | Inpatient (IN) | payer OTHER ==
[2024-06-12] MEDS ORDERED: PIPERACILLIN/TAZOB 3.375 GM 3.375 GM/50 ML BAG IVPB ONE (12:59)
[2024-06-12] MEDS ORDERED: ACETAMINOPHEN INJECTION 100 ML ONE ×2 (12:59→22:54)
[2024-06-12 14:30] LABS: HEMATOCRIT 23.7 % (35.4-49); HEMOGLOBIN 7.5 GM/dL (11.7-16.9); MCH 27.4 pg (25.7-33.7); MCHC 31.8 g/dl (32.0-35.9); MEAN CELL VOLUME 85.9 fl (80-96); MEAN PLT VOLUME 7.6 fl (7.5-11.1); PLATELET COUNT 224 10^3/uL (134-434); RBC 2.75 M/mm3 (4.00-5.60); RDW 18.7 % (11.9-15.9); WHITE BLOOD COUNT 13.8 K/mm3 (4.0-10.0)
[2024-06-12 14:39] LABS: INR 3.11 (0.83-1.09)
[2024-06-12 14:41] LABS: ACTIVATED PTT 34.6 SECONDS (25.2-36.5)
[2024-06-12 14:42] LABS: PH,URINE 6.5 (5.0-8.0); URINE APPEARANCE CLEAR; URINE BILIRUBIN NEGATIVE (NEGATIVE); URINE COLOR YELLOW; URINE GLUCOSE (UA) NEGATIVE (NEGATIVE); URINE KETONE NEGATIVE (NEGATIVE); URINE LEUK ESTERASE NEGATIVE (NEGATIVE); URINE NITRITE NEGATIVE (NEGATIVE); URINE PROTEIN NEGATIVE (NEGATIVE); URINE UROBILINOGEN 0.2 mg/dL (0.2-1.0)
[2024-06-12 14:46] LABS: VENOUS O2 SATURATION 37.6 % (70-80); VENOUS PCO2 43.8 mmHg (38-52); VENOUS PH 7.391 (7.310-7.410)
[2024-06-12] MEDS: PIPERACILLIN/TAZOB 3.375 GM 3.375 GM in DEXTROSE 5%-WATER - 50 ML IVPB ONE (14:49)
[2024-06-12 14:52] LABS: CHLORIDE 94 mmol/L (98-107); POTASSIUM 3.2 mmol/L (3.5-5.1); SODIUM 131 mmol/L (136-145)
[2024-06-12 14:54] LABS: ALBUMIN 3.2 g/dl (3.4-5.0); CALCIUM 9.1 mg/dL (8.5-10.1)
[2024-06-12 14:55] LABS: ANION GAP 10 mmol/L (4-13); CO2 27 mmol/L (21-32); GLUCOSE,RANDOM 157 mg/dL (74-106)
[2024-06-12 14:56] LABS: BLOOD UREA NITROGEN 136.8 mg/dL (7-18)
[2024-06-12 14:58] LABS: CREATININE 2.9 mg/dL (0.55-1.3); SGOT/AST 13 U/L (15-37); SGPT/ALT 22 U/L (13-61)
[2024-06-12 14:59] LABS: BILIRUBIN,TOTAL 0.8 mg/dL (0.2-1); TOT PROT 7.3 g/dl (6.4-8.2)
[2024-06-12 15:00] LABS: ALK PHOS 78 U/L (45-117)
[2024-06-12 15:12] LABS: ERYTHROCYTE SEDIMENTATION RATE 72 mm/hr (0-20)
[2024-06-12 15:16] LABS: ANISOCYTOSIS 1+; MACROCYTOSIS 1+; OVALOCYTE 1+
[2024-06-12] MEDS: ACETAMINOPHEN 1000 MG/100 ML BAG IVPB ONE (15:30)
[2024-06-12] MEDS ORDERED: POTASSIUM CHLORIDE ORAL LIQUID 20 MEQ/15 ML ONE (16:12)
[2024-06-12] MEDS ORDERED: MAGNESIUM SULFATE IN WATER 2 GM/50 ML IVPB IVPB ONE (16:12)
[2024-06-12] MEDS ORDERED: VANCOMYCIN/WATER 1250 MG 1,250 MG/250 ML BAG IVPB ONE (16:13)
[2024-06-12] MEDS: VANCOMYCIN/WATER 1250 MG 1,250 MG/250 ML BAG IVPB ONE (16:35)
[2024-06-12] MEDS: MAGNESIUM SULF 50% (8.12 MEQ/2 ML-1 GM VIAL) IVPB ONE (16:36)
[2024-06-12] MEDS: POTASSIUM CHLORIDE ORAL LIQUID 20 MEQ/15 ML PO ONE (16:36)
[2024-06-12] MEDS: SODIUM CHLORIDE 0.9% 500 ML INFUS.BAG IV ONE ×2 (17:42→18:29)
[2024-06-12] MEDS: morphine SULFATE 4 MG/ML VIAL IVPUSH ONE (17:44)
[2024-06-12 18:43] LABS: MCH 26.7 pg (25.7-33.7); MCHC 30.7 g/dl (32.0-35.9); MEAN CELL VOLUME 86.8 fl (80-96); MEAN PLT VOLUME 7.7 fl (7.5-11.1); PLATELET COUNT 196 10^3/uL (134-434); RBC 2.54 M/mm3 (4.00-5.60); RDW 18.9 % (11.9-15.9); WHITE BLOOD COUNT 13.4 K/mm3 (4.0-10.0)
[2024-06-12 18:57] LABS: HEMOGLOBIN 6.8 GM/dL (11.7-16.9)
[2024-06-12] MEDS ORDERED: PANTOPRAZOLE SODIUM 40 MG VIAL ONE (20:29)
[2024-06-12] MEDS: PANTOPRAZOLE SODIUM 40 MG VIAL IVPUSH ONE (20:30)
[2024-06-12] MEDS ORDERED: NOREPINEPHRINE BITARTRATE 4 MG/4 ML ML IV ONE (22:11)
[2024-06-12] MEDS: NOREPINEPHRINE BITARTRATE 4,000 MCG in DEXTROSE 5%-WATER - 496 ML IV SCH (22:45)
[2024-06-12] MEDS: ACETAMINOPHEN 1000 MG/100 ML BAG IVPB STA (23:58)
[2024-06-13] MEDS ORDERED: PIPERACILLIN/TAZOB 3.375 GM 3.375 GM in DEXTROSE 5%-WATER - 50 ML IVPB SCH (00:30)
[2024-06-13] MEDS: HYDROmorphone HCL CARPU-JECT 2 MG/1 ML DISP.SYRIN IVPUSH STA (01:48)
[2024-06-13] MEDS: PIPERACILLIN/TAZOB 2.25 GM 2.25 GM/50 ML BAG IVPB SCH ×2 (03:27→21:27)
[2024-06-13 08:15] LABS: CHLORIDE 97 mmol/L (98-107); POTASSIUM 3.3 mmol/L (3.5-5.1); SODIUM 132 mmol/L (136-145)
[2024-06-13 08:21] LABS: ANION GAP 10 mmol/L (4-13); BASO % 0.2 % (0-2.0); CALCIUM 8.4 mg/dL (8.5-10.1); CO2 25 mmol/L (21-32); EOS % 0.1 % (0-4.5); HEMATOCRIT 23.4 % (35.4-49); HEMOGLOBIN 7.4 GM/dL (11.7-16.9); LYMPH % 8.6 % (8-40); MAGNESIUM 2.7 mg/dL (1.8-2.4); MCH 27.2 pg (25.7-33.7); MCHC 31.4 g/dl (32.0-35.9); MEAN CELL VOLUME 86.5 fl (80-96); MEAN PLT VOLUME 7.9 fl (7.5-11.1); MONO % 5.8 % (3.8-10.2); NEUT % 85.3 % (42.8-82.8); PLATELET COUNT 201 10^3/uL (134-434); RBC 2.71 M/mm3 (4.00-5.60); RDW 18.5 % (11.9-15.9); WHITE BLOOD COUNT 11.4 K/mm3 (4.0-10.0)
[2024-06-13 08:22] LABS: GLUCOSE,RANDOM 154 mg/dL (74-106)
[2024-06-13 08:25] LABS: CREATININE 2.8 mg/dL (0.55-1.3); PHOSPHOROUS 5.2 mg/dL (2.5-4.9); URIC ACID 10.7 mg/dL (2.6-7.2)
[2024-06-13 08:26] LABS: BLOOD UREA NITROGEN 126.2 mg/dL (7-18)
[2024-06-13] MEDS: APIXABAN 5 MG TABLET PO SCH ×2 (09:32→21:27)
[2024-06-13] MEDS: LACTATED RINGERS SOLUTION 1,000 ML/1,000 ML INFUS.BAG IV SCH ×2 (11:23→17:47)
[2024-06-13] MEDS: TORSEMIDE 100 MG TABLET PO SCH (14:21)
[2024-06-13 14:48] VITALS: BMI 27.1
[2024-06-13] MEDS: VANCOMYCIN/WATER FOR INJ (PEG) 1,000 MG/200 ML BAG IVPB SCH (15:32)
[2024-06-13] MEDS: POTASSIUM CHLORIDE TABS 20 MEQ TABLET.ER (FP) PO ONE (16:19)
[2024-06-13] MEDS ORDERED: PIPERACILLIN/TAZOB 2.25 GM 2.25 GM/50 ML BAG IVPB SCH (21:00)
[2024-06-14] MEDS: TORSEMIDE 20 MG TABLET (FP) PO SCH (06:09)
[2024-06-14] MEDS ORDERED: LIDOCAINE HCL 1%, 10 MG/ML (20ML VIAL) ONE (07:58)
[2024-06-14] MEDS ORDERED: BUPIVACAINE HCL/PF 0.5% (5MG/ML) 10 ML VIAL ONE (07:58)
[2024-06-14 08:44] LABS: HEMATOCRIT 22.4 % (35.4-49); MCH 27.2 pg (25.7-33.7); MCHC 31.5 g/dl (32.0-35.9); MEAN CELL VOLUME 86.5 fl (80-96); MEAN PLT VOLUME 7.7 fl (7.5-11.1); PLATELET COUNT 187 10^3/uL (134-434); RBC 2.59 M/mm3 (4.00-5.60); RDW 19.1 % (11.9-15.9); WHITE BLOOD COUNT 8.3 K/mm3 (4.0-10.0)
[2024-06-14 08:51] LABS: INR 2.42 (0.83-1.09); PROTHROMBIN TIME (PATIENT) 26.7 SEC (9.7-13.0)
[2024-06-14 09:03] LABS: CHLORIDE 101 mmol/L (98-107); POTASSIUM 3.3 mmol/L (3.5-5.1); SODIUM 134 mmol/L (136-145)
[2024-06-14 09:04] LABS: CALCIUM 7.8 mg/dL (8.5-10.1)
[2024-06-14 09:05] LABS: ANION GAP 12 mmol/L (4-13); CO2 22 mmol/L (21-32); GLUCOSE,RANDOM 104 mg/dL (74-106)
[2024-06-14 09:09] LABS: CREATININE 2.1 mg/dL (0.55-1.3)
[2024-06-14 09:35] LABS: MAGNESIUM 1.9 mg/dL (1.8-2.4)
[2024-06-14] MEDS ORDERED: PROPOFOL 20 ML ONE (09:35)
[2024-06-14] MEDS ORDERED: MIDAZOLAM HCL 2 MG/2 ML SINGLE DOSE VIAL ONE (09:36)
[2024-06-14] MEDS: PIPERACILLIN/TAZOBACTAM 3.375 GM VIAL IVPB ONE (11:07)
[2024-06-14] MEDS: morphine SULFATE 4 MG/ML VIAL IVPUSH ONE (12:08)
[2024-06-14] MEDS: LACTATED RINGERS SOLUTION 1,000 ML IV SCH ×3 (12:50→16:20)
[2024-06-14] MEDS: KCL 10 MEQ IVPB 10 MEQ/100 ML INFUS.BAG IVPB SCH ×3 (13:04→13:09)
[2024-06-14] MEDS: PIPERACILLIN/TAZOB 2.25 GM 2.25 GM/50 ML BAG IVPB SCH ×2 (13:09)
[2024-06-14 15:25] LABS: BASO % 0.5 % (0-2.0); EOS % 0.1 % (0-4.5); HEMATOCRIT 27.9 % (35.4-49); HEMOGLOBIN 8.5 GM/dL (11.7-16.9); LYMPH % 7.8 % (8-40); MCH 27.4 pg (25.7-33.7); MCHC 30.7 g/dl (32.0-35.9); MEAN CELL VOLUME 89.5 fl (80-96); MEAN PLT VOLUME 7.8 fl (7.5-11.1); MONO % 7.3 % (3.8-10.2); NEUT % 84.3 % (42.8-82.8); PLATELET COUNT 207 10^3/uL (134-434); RBC 3.11 M/mm3 (4.00-5.60); RDW 18.2 % (11.9-15.9); WHITE BLOOD COUNT 9.2 K/mm3 (4.0-10.0)
[2024-06-14] MEDS ORDERED: VANCOMYCIN 1 GM PREMIX (F) 1,000 MG/200 ML BAG IVPB SCH (16:00)
[2024-06-14] MEDS ORDERED: VANCOMYCIN/WATER FOR INJ (PEG) 1,000 MG/200 ML BAG IVPB SCH (16:00)
[2024-06-14] MEDS: VANCOMYCIN/WATER FOR INJ (PEG) 1,000 MG/200 ML BAG IVPB SCH (16:06)
[2024-06-14] MEDS: PIPERACILLIN/TAZOB 3.375 GM 50 ML IVPB SCH (17:20)
[2024-06-14] MEDS: POTASSIUM CHLORIDE TABS 20 MEQ TABLET.ER (FP) PO ONE (21:06)
[2024-06-15] MEDS ORDERED: PIPERACILLIN/TAZOB 2.25 GM 2.25 GM/50 ML BAG IVPB SCH (03:00)
[2024-06-15] MEDS: methylPREDNISolone 4 MG TABLET PO SCH (06:05)
[2024-06-15 09:24] LABS: BASO % 0.4 % (0-2.0); EOS % 0.4 % (0-4.5); HEMATOCRIT 26.3 % (35.4-49); HEMOGLOBIN 8.4 GM/dL (11.7-16.9); LYMPH % 6.4 % (8-40); MCH 27.5 pg (25.7-33.7); MCHC 31.9 g/dl (32.0-35.9); MEAN CELL VOLUME 86.2 fl (80-96); MEAN PLT VOLUME 7.6 fl (7.5-11.1); MONO % 9.7 % (3.8-10.2); NEUT % 83.1 % (42.8-82.8); PLATELET COUNT 200 10^3/uL (134-434); RBC 3.05 M/mm3 (4.00-5.60); WHITE BLOOD COUNT 7.5 K/mm3 (4.0-10.0)
[2024-06-15 09:43] LABS: POTASSIUM 3.5 mmol/L (3.5-5.1)
[2024-06-15 09:52] LABS: ALBUMIN 2.6 g/dl (3.4-5.0); BLOOD UREA NITROGEN 93.6 mg/dL (7-18)
[2024-06-15 09:53] LABS: CALCIUM 8.3 mg/dL (8.5-10.1); MAGNESIUM 2.3 mg/dL (1.8-2.4)
[2024-06-15 09:56] LABS: CREATININE 2.8 mg/dL (0.55-1.3)
[2024-06-15 09:57] LABS: BILIRUBIN,TOTAL 1.1 mg/dL (0.2-1); TOT PROT 6.5 g/dl (6.4-8.2)
[2024-06-15] MEDS: APIXABAN 5 MG TABLET PO SCH (10:32)
[2024-06-15] MEDS: EMPAGLIFLOZIN (JARDIANCE) 10 MG TABLET PO SCH (10:32)
[2024-06-15] MEDS: TORSEMIDE 100 MG TABLET PO SCH (10:32)
[2024-06-15] MEDS: POTASSIUM CHLORIDE TABS 10 MEQ TABLET.ER (FP) PO ONE (12:05)
[2024-06-15] MEDS: METHYL SALICYLATE/MENTHOL 30 GM TUBE TP SCH (14:50)
[2024-06-15] MEDS ORDERED: VANCOMYCIN/WATER FOR INJ (PEG) 1,000 MG/200 ML BAG IVPB SCH (16:00)
[2024-06-15] MEDS: INSULIN ASPART SLIDING SCALE (NOVOLOG) 1 VIAL SQ SCH (17:27)
[2024-06-16 09:31] LABS: BASO % 1.1 % (0-2.0); EOS % 0.6 % (0-4.5); HEMATOCRIT 24.2 % (35.4-49); HEMOGLOBIN 7.8 GM/dL (11.7-16.9); LYMPH % 10.9 % (8-40); MCH 27.7 pg (25.7-33.7); MCHC 32.1 g/dl (32.0-35.9); MEAN CELL VOLUME 86.5 fl (80-96); MEAN PLT VOLUME 7.5 fl (7.5-11.1); MONO % 12.3 % (3.8-10.2); NEUT % 75.1 % (42.8-82.8); PLATELET COUNT 206 10^3/uL (134-434); WHITE BLOOD COUNT 6.8 K/mm3 (4.0-10.0)
[2024-06-16] MEDS: SPIRONOLACTONE 25 MG TABLET PO SCH (09:43)
[2024-06-16] MEDS: PANTOPRAZOLE 20 MG TABLET PO SCH (09:43)
[2024-06-16] MEDS: predniSONE 20 MG TABLET (UD) PO SCH (09:43)
[2024-06-16 09:54] LABS: POTASSIUM 3.7 mmol/L (3.5-5.1)
[2024-06-16 10:41] LABS: CALCIUM 8.3 mg/dL (8.5-10.1)
[2024-06-16 10:42] LABS: ALBUMIN 2.4 g/dl (3.4-5.0)
[2024-06-16 10:44] LABS: BILIRUBIN,TOTAL 1.1 mg/dL (0.2-1); CREATININE 2.8 mg/dL (0.55-1.3)
[2024-06-16 10:45] LABS: PHOSPHOROUS 4.7 mg/dL (2.5-4.9)
[2024-06-16 10:47] LABS: TOT PROT 6.2 g/dl (6.4-8.2)
[2024-06-16] MEDS: POTASSIUM CHLORIDE TABS 20 MEQ TABLET.ER (FP) PO ONE (13:24)
[2024-06-16] MEDS ORDERED: VANCOMYCIN/WATER FOR INJ (PEG) 1,000 MG/200 ML BAG IVPB SCH (16:00)
[2024-06-17 09:21] LABS: BASO % 0.7 % (0-2.0); EOS % 0.6 % (0-4.5); HEMATOCRIT 18.5 % (35.4-49); LYMPH % 10.1 % (8-40); MCH 27.9 pg (25.7-33.7); MCHC 32.4 g/dl (32.0-35.9); MEAN CELL VOLUME 86.1 fl (80-96); MEAN PLT VOLUME 7.4 fl (7.5-11.1); MONO % 12.5 % (3.8-10.2); NEUT % 76.1 % (42.8-82.8); PLATELET COUNT 193 10^3/uL (134-434); RBC 2.15 M/mm3 (4.00-5.60); RDW 18.3 % (11.9-15.9); WHITE BLOOD COUNT 7.5 K/mm3 (4.0-10.0)
[2024-06-17 09:40] LABS: POTASSIUM 3.9 mmol/L (3.5-5.1)
[2024-06-17 09:48] LABS: CALCIUM 8.2 mg/dL (8.5-10.1)
[2024-06-17 09:49] LABS: ALBUMIN 2.1 g/dl (3.4-5.0); BLOOD UREA NITROGEN 91.6 mg/dL (7-18); MAGNESIUM 2.2 mg/dL (1.8-2.4)
[2024-06-17 09:52] LABS: CREATININE 2.8 mg/dL (0.55-1.3); PHOSPHOROUS 5.2 mg/dL (2.5-4.9)
[2024-06-17 09:53] LABS: BILIRUBIN,TOTAL 0.7 mg/dL (0.2-1); TOT PROT 5.5 g/dl (6.4-8.2)
[2024-06-17] MEDS: FUROSEMIDE 40 MG/4 ML INJECTABLE VIAL IVPUSH ONE (12:00)
[2024-06-17] MEDS: SODIUM CHLORIDE 500 ML IV STA (13:55)
[2024-06-17 22:10] LABS: BASO % 0.2 % (0-2.0); EOS % 0.1 % (0-4.5); HEMATOCRIT 19.7 % (35.4-49); LYMPH % 7.2 % (8-40); MCH 27.4 pg (25.7-33.7); MCHC 31.5 g/dl (32.0-35.9); MEAN CELL VOLUME 86.8 fl (80-96); MEAN PLT VOLUME 7.8 fl (7.5-11.1); MONO % 8.3 % (3.8-10.2); NEUT % 84.2 % (42.8-82.8); PLATELET COUNT 207 10^3/uL (134-434); RBC 2.26 M/mm3 (4.00-5.60); RDW 17.9 % (11.9-15.9); WHITE BLOOD COUNT 8.9 K/mm3 (4.0-10.0)
[2024-06-17 22:37] LABS: HEMOGLOBIN 6.2 GM/dL (11.7-16.9)
[2024-06-18] MEDS: SODIUM CHLORIDE 500 ML IV STA (03:16)
[2024-06-18 12:46] LABS: BASO % 0.4 % (0-2.0); EOS % 0.2 % (0-4.5); HEMATOCRIT 24.3 % (35.4-49); HEMOGLOBIN 7.7 GM/dL (11.7-16.9); LYMPH % 13.8 % (8-40); MCHC 31.8 g/dl (32.0-35.9); MEAN CELL VOLUME 88.2 fl (80-96); MEAN PLT VOLUME 7.9 fl (7.5-11.1); MONO % 11.8 % (3.8-10.2); NEUT % 73.8 % (42.8-82.8); PLATELET COUNT 228 10^3/uL (134-434); RBC 2.76 M/mm3 (4.00-5.60); RDW 16.2 % (11.9-15.9); WHITE BLOOD COUNT 7.9 K/mm3 (4.0-10.0)
[2024-06-18] MEDS: POTASSIUM CHLORIDE TABS 20 MEQ TABLET.ER (FP) PO ONE ×2 (12:55→18:36)
[2024-06-18 13:03] LABS: POTASSIUM 4.3 mmol/L (3.5-5.1)
[2024-06-18 13:08] LABS: ALBUMIN 2.3 g/dl (3.4-5.0); CALCIUM 8.1 mg/dL (8.5-10.1)
[2024-06-18 13:11] LABS: CREATININE 2.9 mg/dL (0.55-1.3)
[2024-06-18 13:12] LABS: BILIRUBIN,TOTAL 1.8 mg/dL (0.2-1); TOT PROT 6.1 g/dl (6.4-8.2)
[2024-06-19 09:38] LABS: HEMATOCRIT 20.6 % (35.4-49); MCH 28.5 pg (25.7-33.7); MCHC 32.6 g/dl (32.0-35.9); MEAN CELL VOLUME 87.3 fl (80-96); MEAN PLT VOLUME 7.7 fl (7.5-11.1); PLATELET COUNT 220 10^3/uL (134-434); RBC 2.36 M/mm3 (4.00-5.60); RDW 16.5 % (11.9-15.9); WHITE BLOOD COUNT 7.8 K/mm3 (4.0-10.0)
[2024-06-19 10:01] LABS: POTASSIUM 4.3 mmol/L (3.5-5.1)
[2024-06-19 10:04] LABS: ALBUMIN 2.2 g/dl (3.4-5.0); CALCIUM 8.4 mg/dL (8.5-10.1); MAGNESIUM 2.2 mg/dL (1.8-2.4)
[2024-06-19 10:05] LABS: BLOOD UREA NITROGEN 99.9 mg/dL (7-18)
[2024-06-19 10:09] LABS: TOT PROT 5.8 g/dl (6.4-8.2)
[2024-06-19 10:15] LABS: HEMOGLOBIN 6.7 GM/dL (11.7-16.9)
[2024-06-19] MEDS: ACETAMINOPHEN 1000 MG/100 ML BAG IVPB ONE (16:22)
[2024-06-19] MEDS: HYDROmorphone HCL CARPU-JECT 2 MG/1 ML DISP.SYRIN IVPUSH ONE (16:48)
[2024-06-19 17:40] LABS: BASO % 0.2 % (0-2.0); HEMATOCRIT 20.5 % (35.4-49); LYMPH % 9.3 % (8-40); MCH 28.3 pg (25.7-33.7); MCHC 32.4 g/dl (32.0-35.9); MEAN CELL VOLUME 87.4 fl (80-96); MEAN PLT VOLUME 7.7 fl (7.5-11.1); MONO % 4.8 % (3.8-10.2); NEUT % 85.7 % (42.8-82.8); PLATELET COUNT 212 10^3/uL (134-434); RBC 2.35 M/mm3 (4.00-5.60); RDW 16.5 % (11.9-15.9); WHITE BLOOD COUNT 7.2 K/mm3 (4.0-10.0)
[2024-06-19 17:55] LABS: HEMOGLOBIN 6.6 GM/dL (11.7-16.9)
[2024-06-19] MEDS: oxyCODONE HCL 5 MG TABLET PO PRN (21:07)
[2024-06-19 22:36] LABS: HEMATOCRIT 20.4 % (35.4-49); MCH 28.3 pg (25.7-33.7); MCHC 32.3 g/dl (32.0-35.9); MEAN CELL VOLUME 87.6 fl (80-96); MEAN PLT VOLUME 7.5 fl (7.5-11.1); PLATELET COUNT 213 10^3/uL (134-434); RBC 2.33 M/mm3 (4.00-5.60); RDW 16.3 % (11.9-15.9); WHITE BLOOD COUNT 7.7 K/mm3 (4.0-10.0)
[2024-06-19 22:46] LABS: HEMOGLOBIN 6.6 GM/dL (11.7-16.9)
[2024-06-19] MEDS: oxyCODONE HCL 5 MG TABLET PO ONE (23:13)
[2024-06-20] MEDS: HYDROmorphone HCL CARPU-JECT 2 MG/1 ML DISP.SYRIN IVPUSH ONE (01:56)
[2024-06-20 10:07] LABS: HEMATOCRIT 22.5 % (35.4-49); HEMOGLOBIN 7.5 GM/dL (11.7-16.9); MCH 28.8 pg (25.7-33.7); MCHC 33.2 g/dl (32.0-35.9); MEAN CELL VOLUME 86.8 fl (80-96); MEAN PLT VOLUME 7.5 fl (7.5-11.1); PLATELET COUNT 212 10^3/uL (134-434); RBC 2.59 M/mm3 (4.00-5.60); RDW 15.7 % (11.9-15.9); WHITE BLOOD COUNT 9.4 K/mm3 (4.0-10.0)
[2024-06-20 10:14] LABS: INR 1.46 (0.83-1.09); PROTHROMBIN TIME (PATIENT) 16.3 SEC (9.7-13.0)
[2024-06-20] MEDS: FERROUS GLUCONATE 324 MG TAB (FP) PO SCH (10:15)
[2024-06-20 10:30] LABS: POTASSIUM 4.1 mmol/L (3.5-5.1)
[2024-06-20 10:40] LABS: ALBUMIN 2.3 g/dl (3.4-5.0); CALCIUM 8.2 mg/dL (8.5-10.1)
[2024-06-20 10:41] LABS: BLOOD UREA NITROGEN 103.5 mg/dL (7-18)
[2024-06-20 10:44] LABS: BILIRUBIN,TOTAL 1.3 mg/dL (0.2-1); CREATININE 3.1 mg/dL (0.55-1.3)
[2024-06-20 10:45] LABS: TOT PROT 5.8 g/dl (6.4-8.2)
[2024-06-20] MEDS: IRON SUCROSE INJECTION 100 MG in SODIUM CHLORIDE 95 ML IVPB ONE (14:30)
[2024-06-20 21:52] LABS: CHLORIDE 90 mmol/L (98-107); POTASSIUM 4.4 mmol/L (3.5-5.1); SODIUM 124 mmol/L (136-145)
[2024-06-20 21:53] LABS: CALCIUM 8.1 mg/dL (8.5-10.1)
[2024-06-20 21:54] LABS: ANION GAP 13 mmol/L (4-13); CO2 21 mmol/L (21-32); GLUCOSE,RANDOM 156 mg/dL (74-106)
[2024-06-20 21:56] LABS: BLOOD UREA NITROGEN 111.8 mg/dL (7-18)
[2024-06-20 21:58] LABS: CREATININE 3.2 mg/dL (0.55-1.3)
[2024-06-21 09:51] LABS: HEMATOCRIT 21.7 % (35.4-49); HEMOGLOBIN 7.3 GM/dL (11.7-16.9); MCH 29.6 pg (25.7-33.7); MCHC 33.6 g/dl (32.0-35.9); MEAN CELL VOLUME 88.2 fl (80-96); MEAN PLT VOLUME 7.5 fl (7.5-11.1); PLATELET COUNT 217 10^3/uL (134-434); RBC 2.46 M/mm3 (4.00-5.60); RDW 15.7 % (11.9-15.9); WHITE BLOOD COUNT 9.4 K/mm3 (4.0-10.0)
[2024-06-21] MEDS: AMOX TR/POT CLAV 500MG/125MG TABLETS (FP) PO SCH (09:58)
[2024-06-21] MEDS: SPIRONOLACTONE 25 MG TABLET PO SCH (09:58)
[2024-06-21 10:02] LABS: CHLORIDE 89 mmol/L (98-107); POTASSIUM 3.9 mmol/L (3.5-5.1); SODIUM 124 mmol/L (136-145)
[2024-06-21 10:06] LABS: ANION GAP 14 mmol/L (4-13); CALCIUM 8.3 mg/dL (8.5-10.1); CO2 21 mmol/L (21-32); GLUCOSE,RANDOM 141 mg/dL (74-106)
[2024-06-21 10:10] LABS: CREATININE 3.3 mg/dL (0.55-1.3)
[2024-06-21 10:45] LABS: ANISOCYTOSIS 1+; MACROCYTOSIS 1+
[2024-06-21 12:40] LABS: BLOOD UREA NITROGEN 115.3 mg/dL (7-18)
[2024-06-21] MEDS: TORSEMIDE 100 MG TABLET PO SCH ×2 (16:51→17:30)
[2024-06-21 20:10] LABS: CHLORIDE 90 mmol/L (98-107); POTASSIUM 3.8 mmol/L (3.5-5.1); SODIUM 124 mmol/L (136-145)
[2024-06-21 20:12] LABS: ANION GAP 12 mmol/L (4-13); CALCIUM 8.2 mg/dL (8.5-10.1); CO2 23 mmol/L (21-32); GLUCOSE,RANDOM 143 mg/dL (74-106)
[2024-06-21 20:15] LABS: CREATININE 3.4 mg/dL (0.55-1.3)
[2024-06-21 20:17] LABS: BLOOD UREA NITROGEN 114.7 mg/dL (7-18)
[2024-06-22] MEDS: TORSEMIDE 100 MG TABLET PO SCH (06:28)
[2024-06-22 09:42] LABS: BASO % 0.4 % (0-2.0); EOS % 0.2 % (0-4.5); HEMATOCRIT 21.6 % (35.4-49); LYMPH % 8.9 % (8-40); MCHC 32.3 g/dl (32.0-35.9); MEAN CELL VOLUME 89.6 fl (80-96); MEAN PLT VOLUME 7.4 fl (7.5-11.1); MONO % 11.5 % (3.8-10.2); PLATELET COUNT 222 10^3/uL (134-434); RBC 2.41 M/mm3 (4.00-5.60); RDW 16.2 % (11.9-15.9)
[2024-06-22 10:01] LABS: CHLORIDE 91 mmol/L (98-107); POTASSIUM 3.5 mmol/L (3.5-5.1); SODIUM 125 mmol/L (136-145)
[2024-06-22 10:07] LABS: CALCIUM 8.3 mg/dL (8.5-10.1)
[2024-06-22 10:08] LABS: ALBUMIN 2.4 g/dl (3.4-5.0); ANION GAP 12 mmol/L (4-13); CO2 22 mmol/L (21-32); GLUCOSE,RANDOM 128 mg/dL (74-106)
[2024-06-22 10:11] LABS: CREATININE 3.3 mg/dL (0.55-1.3); SGOT/AST 32 U/L (15-37); SGPT/ALT 44 U/L (13-61)
[2024-06-22 10:13] LABS: ALK PHOS 74 U/L (45-117); BLOOD UREA NITROGEN 115.4 mg/dL (7-18); TOT PROT 5.9 g/dl (6.4-8.2)
[2024-06-22 10:15] LABS: BILIRUBIN,TOTAL 0.9 mg/dL (0.2-1)
[2024-06-22] MEDS: SENNOSIDES 8.6MG TABLET (FP) PO SCH (21:14)
[2024-06-22] MEDS: MELATONIN 5 MG TABLETS PO ONE (21:17)
[2024-06-22] MEDS: PSYLLIUM 5.85 GM PACKET PO SCH (21:17)
[2024-06-22] MEDS: IRON SUCROSE INJECTION 100 MG in SODIUM CHLORIDE 95 ML IVPB ONE (22:10)
[2024-06-23 06:41] VITALS: BP 100/67; PULSE 88; RESP 18; TEMP 98.2
== END 2024-06-23 08:59 | disposition home or self-care (01) | DRG 853 ==
LOC: JER 11:16 → JERBED 17:13 → JICU 21:14 → J6S 06-13 17:22 → J8W 06-20 19:37 → J6S 06-22 21:43
PROVIDERS: ADMIT Internal Medicine; ATTEND Internal Medicine
PROC: 30233N1 Transfusion of Nonautologous Red Blood Cells into Peripheral Vein, Percutaneous Approach (ICD-10-PCS; 2024-06-12)
PROC: 0J9M0ZX Drainage of Left Upper Leg Subcutaneous Tissue and Fascia, Open Approach, Diagnostic (ICD-10-PCS; 2024-06-14)
PROC: 0JBM0ZZ Excision of Left Upper Leg Subcutaneous Tissue and Fascia, Open Approach (ICD-10-PCS; principal; 2024-06-14 11:00)
DX: A41.9 Sepsis, unspecified organism (principal); R65.21 Severe sepsis with septic shock; L02.416 Cutaneous abscess of left lower limb; I13.0 Hypertensive heart and chronic kidney disease with heart failure and stage 1 through stage 4 chronic kidney disease, or unspecified chronic kidney disease; I50.22 Chronic systolic (congestive) heart failure; I48.19 Other persistent atrial fibrillation; I24.89 Other forms of acute ischemic heart disease; N17.9 Acute kidney failure, unspecified; R18.8 Other ascites; D62 Acute posthemorrhagic anemia; E87.1 Hypo-osmolality and hyponatremia; Z79.01 Long term (current) use of anticoagulants; I25.10 Atherosclerotic heart disease of native coronary artery without angina pectoris; N18.30 Chronic kidney disease, stage 3 unspecified; N28.1 Cyst of kidney, acquired; M10.9 Gout, unspecified
CPT/HCPCS: 0241U-QW; 36415; 36430; 71045-TC-FY; 73070-TC-RT-FY; 73700-TC-RT; 74176-TC; 80048; 80053; 81003; 82533; 82550; 82728; 82803; 82962; 83540; 83550; 83605; 83735; 84100; 84443; 84466; 84484; 84550; 85025; 85027; 85045; 85610; 85651; 85730; 86140; 86850; 86900; 86901; 86922; 87040; 87070; 87076; 87086; 87186; 87205; 87481; 88305-TC; 93005; 93010; 93308; 94760; 99285-25; G0480; J0131; J1756; J2597; P9058

== ENCOUNTER 2024-08-01 10:05 | Emergency (ER) | payer OTHER ==
[2024-08-01 10:12] VITALS: BMI 26.2
[2024-08-01] MEDS ORDERED: BACITRACIN ZINC 15 GM TUBE TOPICAL OINTMENT ONE (10:59)
[2024-08-01] MEDS ORDERED: DIPHTH,PERTUSS(ACELL),TET 0.5 ML DISP.SYRIN IM ONE (11:44)
[2024-08-01] MEDS: DIPHTH,PERTUSS(ACELL),TET 0.5 ML DISP.SYRIN IM ONE (11:45)
[2024-08-01 14:47] VITALS: BP 90/55; PULSE 75; RESP 17; TEMP 97.8
== END 2024-08-01 15:11 | disposition home or self-care (01) ==
LOC: JER 10:05
PROC: 3E0234Z Introduction of Serum, Toxoid and Vaccine into Muscle, Percutaneous Approach (ICD-10-PCS; principal; 2024-08-01)
DX: S51.812A Laceration without foreign body of left forearm, initial encounter (principal); S00.83XA Contusion of other part of head, initial encounter; Z23 Encounter for immunization; W01.0XXA Fall on same level from slipping, tripping and stumbling without subsequent striking against object, initial encounter
CPT/HCPCS: 70450-TC; 90471; 90715; 99284-25

== ENCOUNTER 2024-08-08 08:58 | Inpatient (IN) | payer OTHER ==
[2024-08-08 09:14] VITALS: BMI 27.2
[2024-08-08 10:08] LABS: BASO % 0.7 % (0-2.0); EOS % 0.3 % (0-4.5); HEMATOCRIT 21.5 % (35.4-49); LYMPH % 9.6 % (8-40); MCH 26.3 pg (25.7-33.7); MCHC 31.6 g/dl (32.0-35.9); MEAN CELL VOLUME 83.1 fl (80-96); MEAN PLT VOLUME 6.9 fl (7.5-11.1); MONO % 13.5 % (3.8-10.2); NEUT % 75.9 % (42.8-82.8); PLATELET COUNT 326 10^3/uL (134-434); RBC 2.59 M/mm3 (4.00-5.60); RDW 18.7 % (11.9-15.9); WHITE BLOOD COUNT 6.8 K/mm3 (4.0-10.0)
[2024-08-08 10:12] LABS: HEMOGLOBIN 6.8 GM/dL (11.7-16.9); INR 1.88 (0.83-1.09); PROTHROMBIN TIME (PATIENT) 20.7 SEC (9.7-13.0)
[2024-08-08 10:15] LABS: ACTIVATED PTT 32.9 SECONDS (25.2-36.5)
[2024-08-08 10:35] LABS: CHLORIDE 90 mmol/L (98-107); SODIUM 130 mmol/L (136-145)
[2024-08-08 10:38] LABS: POTASSIUM 2.9 mmol/L (3.5-5.1)
[2024-08-08 10:46] LABS: ALBUMIN 2.8 g/dl (3.4-5.0); ANION GAP 16 mmol/L (4-13); CALCIUM 8.4 mg/dL (8.5-10.1); CO2 24 mmol/L (21-32); GLUCOSE,RANDOM 136 mg/dL (74-106); MAGNESIUM 2.4 mg/dL (1.8-2.4)
[2024-08-08 10:47] LABS: BLOOD UREA NITROGEN 116.8 mg/dL (7-18)
[2024-08-08 10:49] LABS: CREATININE 2.2 mg/dL (0.55-1.3); SGOT/AST 19 U/L (15-37); SGPT/ALT 19 U/L (13-61)
[2024-08-08 10:51] LABS: BILIRUBIN,TOTAL 0.8 mg/dL (0.2-1)
[2024-08-08 10:52] LABS: ALK PHOS 92 U/L (45-117)
[2024-08-08] MEDS ORDERED: POTASSIUM CHLORIDE TABS 20 MEQ TABLET.ER (FP) PO ONE (11:29)
[2024-08-08] MEDS: POTASSIUM CHLORIDE TABS 20 MEQ TABLET.ER (FP) PO ONE (11:49)
[2024-08-08] MEDS: LACTATED RINGERS SOLUTION 1000 ML INFUS.BAG IV ONE ×2 (11:50→12:55)
[2024-08-08 15:49] LABS: CHLORIDE 93 mmol/L (98-107); SODIUM 131 mmol/L (136-145)
[2024-08-08 15:50] LABS: CALCIUM 7.8 mg/dL (8.5-10.1)
[2024-08-08 15:51] LABS: ANION GAP 13 mmol/L (4-13); CO2 25 mmol/L (21-32); GLUCOSE,RANDOM 160 mg/dL (74-106)
[2024-08-08 15:52] LABS: BLOOD UREA NITROGEN 111.4 mg/dL (7-18)
[2024-08-08 15:54] LABS: CREATININE 2.2 mg/dL (0.55-1.3)
[2024-08-08] MEDS ORDERED: metoPROLOL SUCCINATE 25 MG TAB.SR.24H (FP) PO ONE (22:05)
[2024-08-08] MEDS ORDERED: APIXABAN 5 MG TABLET ONE (22:05)
[2024-08-08] MEDS: APIXABAN 5 MG TABLET PO SCH (22:22)
[2024-08-08] MEDS: metoPROLOL SUCCINATE 25 MG TAB.SR.24H (FP) PO SCH (22:22)
[2024-08-08 22:24] LABS: PH,URINE 5.5 (5.0-8.0); URINE APPEARANCE CLEAR; URINE BILIRUBIN NEGATIVE (NEGATIVE); URINE COLOR YELLOW; URINE GLUCOSE (UA) NEGATIVE (NEGATIVE); URINE KETONE NEGATIVE (NEGATIVE); URINE LEUK ESTERASE NEGATIVE (NEGATIVE); URINE NITRITE NEGATIVE (NEGATIVE); URINE PROTEIN NEGATIVE (NEGATIVE); URINE UROBILINOGEN 0.2 mg/dL (0.2-1.0)
[2024-08-09 07:25] LABS: BASO % 0.2 % (0-2.0); EOS % 0.2 % (0-4.5); HEMATOCRIT 24.9 % (35.4-49); LYMPH % 9.5 % (8-40); MCH 26.5 pg (25.7-33.7); MEAN CELL VOLUME 82.8 fl (80-96); MEAN PLT VOLUME 7.3 fl (7.5-11.1); NEUT % 80.1 % (42.8-82.8); PLATELET COUNT 310 10^3/uL (134-434); RBC 3.01 M/mm3 (4.00-5.60); RDW 19.2 % (11.9-15.9); WHITE BLOOD COUNT 7.6 K/mm3 (4.0-10.0)
[2024-08-09 07:46] LABS: CHLORIDE 93 mmol/L (98-107); POTASSIUM 3.3 mmol/L (3.5-5.1); SODIUM 132 mmol/L (136-145)
[2024-08-09 07:52] LABS: CALCIUM 8.1 mg/dL (8.5-10.1)
[2024-08-09 07:53] LABS: ALBUMIN 2.6 g/dl (3.4-5.0); ANION GAP 14 mmol/L (4-13); CO2 25 mmol/L (21-32); GLUCOSE,RANDOM 130 mg/dL (74-106); MAGNESIUM 2.2 mg/dL (1.8-2.4)
[2024-08-09 07:56] LABS: CREATININE 2.2 mg/dL (0.55-1.3); PHOSPHOROUS 4.4 mg/dL (2.5-4.9); SGOT/AST 17 U/L (15-37); SGPT/ALT 17 U/L (13-61)
[2024-08-09 07:58] LABS: BILIRUBIN,TOTAL 1.3 mg/dL (0.2-1); TOT PROT 6.7 g/dl (6.4-8.2)
[2024-08-09 07:59] LABS: ALK PHOS 83 U/L (45-117)
[2024-08-09] MEDS: TORSEMIDE 100 MG TABLET PO SCH (09:55)
[2024-08-09] MEDS ORDERED: MULTIVITAMINS (DAILY MVI) TABLET (FP) ONE (14:39)
[2024-08-09] MEDS ORDERED: POTASSIUM CHLORIDE ORAL LIQUID 20 MEQ/15 ML ONE ×2 (14:39→16:19)
[2024-08-09] MEDS: TAMSULOSIN HCL 0.4 MG CAP PO SCH (14:42)
[2024-08-09] MEDS: POTASSIUM CHLORIDE ORAL LIQUID 20 MEQ/15 ML PO ONE ×2 (14:42→15:01)
[2024-08-09] MEDS: FERROUS GLUCONATE 324 MG TAB (FP) PO SCH (14:43)
[2024-08-09] MEDS: MULTIVITAMINS (DAILY MVI) TABLET (FP) PO SCH (14:43)
[2024-08-09] MEDS: EMPAGLIFLOZIN (JARDIANCE) 10 MG TABLET PO SCH (14:43)
[2024-08-09] MEDS ORDERED: PANTOPRAZOLE 40 MG TABLET PO ONE (14:44)
[2024-08-09] MEDS: PANTOPRAZOLE 40 MG TABLET PO SCH (15:01)
[2024-08-09 15:33] LABS: BILIRUBIN,DIRECT 0.5 mg/dL (0.0-0.2)
[2024-08-09] MEDS: METOLAZONE 2.5 MG TABLET (FP) PO SCH (16:28)
[2024-08-09 16:44] VITALS: BP 96/52; PULSE 90; RESP 17; TEMP 98.1
== END 2024-08-09 17:19 | disposition home health service (06) | DRG 812 ==
LOC: JER 08:58 → JERBED 14:51 → OBSVTOIN 17:17
PROVIDERS: ADMIT Internal Medicine; ATTEND Internal Medicine
PROC: 30233N1 Transfusion of Nonautologous Red Blood Cells into Peripheral Vein, Percutaneous Approach (ICD-10-PCS; principal; 2024-08-08)
DX: D64.9 Anemia, unspecified (principal); I48.19 Other persistent atrial fibrillation; K92.2 Gastrointestinal hemorrhage, unspecified; E87.1 Hypo-osmolality and hyponatremia; N17.9 Acute kidney failure, unspecified; I13.0 Hypertensive heart and chronic kidney disease with heart failure and stage 1 through stage 4 chronic kidney disease, or unspecified chronic kidney disease; I50.22 Chronic systolic (congestive) heart failure; R18.8 Other ascites; R64 Cachexia; I27.20 Pulmonary hypertension, unspecified; M10.9 Gout, unspecified; I08.1 Rheumatic disorders of both mitral and tricuspid valves; N28.1 Cyst of kidney, acquired; K76.1 Chronic passive congestion of liver; E78.5 Hyperlipidemia, unspecified; G47.33 Obstructive sleep apnea (adult) (pediatric); I25.10 Atherosclerotic heart disease of native coronary artery without angina pectoris; E11.22 Type 2 diabetes mellitus with diabetic chronic kidney disease; N18.30 Chronic kidney disease, stage 3 unspecified; Z95.810 Presence of automatic (implantable) cardiac defibrillator; Z86.718 Personal history of other venous thrombosis and embolism; Z85.46 Personal history of malignant neoplasm of prostate
CPT/HCPCS: 0241U-QW; 36415; 36430; 76700-TC; 80048; 80053; 81003; 82248; 83735; 84100; 84484; 85025; 85610; 85730; 86850; 86900; 86901; 86922; 87086; 93005; 93010; 99285-25; G0378; P9058

== ENCOUNTER 2024-08-20 18:16 | Emergency (ER) | payer OTHER ==
[2024-08-20 18:27] VITALS: BP 97/49; PULSE 83; RESP 18; TEMP 97.4; BMI 28.6
[2024-08-20] MEDS ORDERED: DIPHTH,PERTUSS(ACELL),TET 0.5 ML DISP.SYRIN IM ONE (18:40)
[2024-08-20] MEDS ORDERED: LIDO 2%/EPI 1:200000 PRESRVFRE (20 ML SDVIAL) ONE (18:45)
[2024-08-20] MEDS ORDERED: ACETAMINOPHEN INJECTION 100 ML ONE (18:49)
[2024-08-20] MEDS: DIPHTH,PERTUSS(ACELL),TET 0.5 ML DISP.SYRIN IM ONE (18:59)
[2024-08-20] MEDS: ACETAMINOPHEN 1000 MG/100 ML BAG IVPB ONE (19:00)
[2024-08-20] MEDS ORDERED: AMOX TR/POT CLAV 500MG/125MG TABLETS (FP) ONE (20:03)
[2024-08-20] MEDS: AMOX TR/POT CLAV 500MG/125MG TABLETS (FP) PO ONE (20:09)
== END 2024-08-20 20:23 | disposition home or self-care (01) ==
LOC: FER 18:16
PROC: 0HQKXZZ Repair Right Lower Leg Skin, External Approach (ICD-10-PCS; principal; 2024-08-20)
PROC: 3E033NZ Introduction of Analgesics, Hypnotics, Sedatives into Peripheral Vein, Percutaneous Approach (ICD-10-PCS; 2024-08-20)
PROC: 3E0234Z Introduction of Serum, Toxoid and Vaccine into Muscle, Percutaneous Approach (ICD-10-PCS; 2024-08-20)
DX: S81.811A Laceration without foreign body, right lower leg, initial encounter (principal); Z23 Encounter for immunization; V00.141A Fall from scooter (nonmotorized), initial encounter
CPT/HCPCS: 12002-25; 73590-TC-RT-FY; 90471; 90715; 96374; 99284-25; J0131